=== PATIENT | female | born 1960 | race Caucasian/White ===

== ENCOUNTER 2021-03-07 14:58 | Outpatient (REF) | payer BC, SELFPAY ==
--- NOTE | ~2021-03-07 | US_ITS ---
EXAMINATION: US VENOUS ULTRASOUND WITH DOPPLER LOWER EXTREMITY, LEFT CLINICAL INFORMATION: Pain COMPARISON: None TECHNIQUE: Ultrasound of the deep veins is performed from the hip to the calf with compression sonography and color and pulse Doppler assessment. Spectral analysis with color-flow imaging is performed. FINDINGS: There is normal venous compression and respiratory variation and augmented flow. The visualized common femoral vein, superficial femoral vein, profunda femoral vein, popliteal vein, and the trifurcation region shows no evidence of deep venous thrombosis. There is no significant popliteal fossa cyst. US/US venous duplex LE LT IMPRESSION: No DVT demonstrated in the left lower extremity.
== END 2021-03-07 14:59 | disposition home or self-care (01) ==
LOC: HO.US 14:58
PROVIDERS: PCP Internal Medicine; Visit Provider Internal Medicine
DX: M79.605 Pain in left leg (principal)
CPT/HCPCS: 93971

== ENCOUNTER 2021-03-17 10:19 | Outpatient (REF) | payer BC, SELFPAY ==
[2021-03-17 10:23] LABS: MANUAL DIFF FLAG NO
[2021-03-17 10:35] LABS: Basophils Percent Auto 0.4 % (0-2); Eosinophils Absolute Auto 0.1 X10*3/uL (0.0-0.4); Eosinophils Percent Auto 1.5 % (0-4); Hemoglobin 12.6 g/dl (12.0-16.0); Imm Gran Abs Auto 0.01 X10*3/uL (0.00-0.03); Imm Gran Pct Auto 0.2 % (0.0-0.4); Lymphocytes Absolute Auto 1.9 X10*3/uL (1.2-4.9); Lymphocytes Percent Auto 35.2 % (20-40); Mean Corpuscular HGB Conc 33.2 g/dl (31.0-35.0); Mean Corpuscular Hemoglobin 31.3 pg (27.0-33.0); Mean Corpuscular Volume 94.5 fL (80-98); Mean Platelet Volume 9.9 fL (9.4-12.3); Monocytes Absolute Auto 0.5 X10*3/uL (0.1-1.2); Monocytes Percent Auto 9.9 % (2-11); Neutrophils Absolute Auto 2.8 X10*3/uL (2.0-8.3); Neutrophils Percent Auto 52.8 % (45-73); Platelet Count 227 X10*3/uL (160-400); Red Blood Count 4.02 X10*6/uL (4.20-5.50); Red Cell Distribution Width 12.8 % (11.0-16.0); White Blood Count 5.3 X10*3/uL (4.8-10.8)
[2021-03-17 10:41] LABS: Estimated Average Glucose 111 mg/dL; Hemoglobin A1c % 5.5 %
[2021-03-17 10:52] LABS: Glucose Urine UA NEG (NEG); Leukocyte Esterase Urine NEG (NEG); Nitrite Urine NEG (NEG); PH 5.5 (5.0-8.0); Specific Gravity - Urine >= 1.030 (1.005-1.025); Urine Blood NEG (NEG); Urine Ketones NEG (NEG); Urine Protein NEG (NEG-TRACE)
[2021-03-17 10:57] LABS: Appearance Urine CLEAR; Color Urine YELLOW
[2021-03-17 11:03] LABS: Alanine Aminotransferase 22 U/L (0-31); Albumin Level 4.5 g/dL (3.5-5.0); Alkaline Phosphatase 72 U/L (39-117); Anion Gap 12 (12-20); Aspartate Amino Transferase 25 U/L (5-31); Bilirubin Total 0.5 mg/dL (0.0-1.0); Blood Urea Nitrogen 20 mg/dL (9-16); Calcium 9.3 mg/dL (8.4-10.2); Carbon Dioxide 27 mmol/L (22-29); Chloride 108 mmol/L (96-108); Cholesterol 193 mg/dL; Estimated Glomerular Filt Rate > 60; Glucose Fasting 102 mg/dL (60-99); HDL Cholesterol 64 mg/dL; LDL Cholesterol Calculated 118 mg/dl; Sodium 143 mmol/L (135-145); Total Protein 6.7 g/dL (6.5-8.0); Triglycerides 56 mg/dL
[2021-03-17 11:06] LABS: Creatinine Urine 108.53 mg/dL; Microalbum/Creatinine Ratio Ur 6.4 ug/mg cr
[2021-03-17 11:25] LABS: Vitamin D 25-OH Total 30.4 ng/mL (>30)
== END 2021-03-17 10:20 | disposition home or self-care (01) ==
LOC: HO.LNP 10:19
PROVIDERS: Visit Provider Internal Medicine
DX: Z00.00 Encounter for general adult medical examination without abnormal findings (principal); E78.6 Lipoprotein deficiency; R73.03 Prediabetes; I10 Essential (primary) hypertension; E55.9 Vitamin D deficiency, unspecified
CPT/HCPCS: 80053; 80061; 81003; 82043; 82306; 83036; 85025

== ENCOUNTER 2021-09-11 10:52 | Day surgery (SDC) | payer BC, SELFPAY ==
[2021-09-04 09:35] VITALS: BMI 32.0
--- NOTE | 2021-09-07 14:39 | MHC.SHP ---
Pre-Procedural Eval Section A Date of Service: 09/07/21 The patient is an INPATIENT: No Changes since office visit: No Cold of Flu in the past 2 weeks, No New Medical Problems, No Changes in Medication and No Patient answered all questions The History & Physical has been completed within 30 days and I have reviewed it.: No Section B Chief Complaint: bleph Allergies: Allergies Allergy/AdvReac Type Severity Reaction Status Date / Time No Known Allergies Allergy Verified 09/01/21 15:07 Plan Diagnosis/Plan: Unchanged I have reviewed the history and physical and performed a pertinent physical examination on my patient. No changes have occurred unless specified.
--- NOTE | 2021-09-08 13:55 | P.CONAN_ITS ---
Documented by User: Cinthia Julian NP 09/08/21 13:56 HPI - Anesthesia Eval Consult details Narrative: 60yo F for Bilateral Blepharoplasty PCP cleared [facility] Past Medical History Medical History Benign neoplasm of ear COVID-19 vaccine series completed Surgical History Surgical History H/O colonoscopy History of lumpectomy of right breast Hx of ovarian cystectomy Social History Social History Are you a primary customer care specialist to a significant other at home: No Do you presently have visiting nurse or other home services: No Patient Tobacco Use Status: Never used Tobacco Use of substances other than those prescribed or required for medical reasons: No Have you been hit, kicked, punched, or otherwise hurt by someone within the past year? If so, by whom?: No Are you DNR?: No Advance Directives Information Provided: Yes (informational brochure mailed) Advance Directives on File: No Recently lost weight without trying: No Eating poorly because of decreased appetite: No Nutrition Risks: No Nutritional Risk Poor oral hygiene: No Meds Allergies Allergy/AdvReac Type Severity Reaction Status Date / Time No Known Allergies Allergy Verified 09/11/21 13:33 Home Medications Medication Instructions Recorded Confirmed Last Taken Type multivitamin 1 tab PO DAILY 09/04/21 09/04/21 Unknown History tamoxifen 20 mg tablet 1 tab PO DAILY 09/04/21 09/04/21 Unknown History Exam Exam Date and Time: September 08, 2021 1355 Height,Weight and Vital Signs: Height 5 ft 2 in Weight 79.379 kg Assessment and Plan Assessment Anesthesia Assessment: Chart Reviewed Documented by User: Floridalma Reddy MD 09/11/21 14:05 [facility] Past Medical History Medical History Benign neoplasm of ear COVID-19 vaccine series completed Family History Family history of problems with anesthesia: No Surgical History Surgical History H/O colonoscopy History of lumpectomy of right breast Hx of ovarian cystectomy History of Problems with Anesthesia: No Social History Social History Are you a primary customer care specialist to a significant other at home: No Do you presently have visiting nurse or other home services: No Patient Tobacco Use Status: Never used Tobacco Use of substances other than those prescribed or required for medical reasons: No Have you been hit, kicked, punched, or otherwise hurt by someone within the past year? If so, by whom?: No Are you DNR?: No Advance Directives Information Provided: Yes (informational brochure mailed) Advance Directives on File: No Recently lost weight without trying: No Eating poorly because of decreased appetite: No Nutrition Risks: No Nutritional Risk Poor oral hygiene: No Meds Allergies Allergy/AdvReac Type Severity Reaction Status Date / Time No Known Allergies Allergy Verified 09/11/21 13:33 Home Medications Medication Instructions Recorded Confirmed Last Taken Type multivitamin 1 tab PO DAILY 09/04/21 09/04/21 Unknown History tamoxifen 20 mg tablet 1 tab PO DAILY 09/04/21 09/04/21 Unknown History Exam Height,Weight and Vital Signs: Height 5 ft 2 in Weight 79.379 kg Vital Signs Temp Pulse Resp BP Pulse Ox 09/11/21 13:33 97.5 F 83 16 175/92 H 98 Airway Mallampati Class: II TM Dist: >3cm Neck ROM: Full Heart: RRR Lungs: CTAB Assessment and Plan Assessment Anesthesia Assessment: Anesthesia Plan Discussed Final Anesthetic Review Family History of Problems with Anesthesia: No History of Problems with Anesthesia: No NPO: Yes ASA Class: II Final Preanesthetic Review: No Changes in Pt Med Stat, Meds/Allgs Chart Reviewed , Consent Obtained/Reviewed and Anes Risks/Benef Reviewed Patient Risk: Low Procedure Risk: Low Assessment/Block/Sedation in SS: Assess/Block/Sedation-SS Anesthetic Plan Anesthetic Plan: MAC: Disposition: Standard PACU
[2021-09-11 13:33] VITALS: BP 175/92; PULSE 83; RESP 16; TEMP 36.4; O2SAT 98
[2021-09-11] MEDS: Lactated Ringers 500 ML 50 ML IV (13:50)
--- NOTE | 2021-09-11 14:47 | HO.PNOPHT ---
Ophthalmology Procedure Procedure Date of Service: 09/11/21 Ophthalmology Viscoelastic: Not Applicable Ophthalmology Lenses: Not Applicable Procedure Notes: PREOPERATIVE DIAGNOSIS: Decreased visual field secondary to dermatochalasia POSTOPERATIVE DIAGNOSIS: Same PROCEDURE: Bilateral Blepharoplasty, upper eyelids SURGEON: Khoi Suh M.D. ANESTHESIA: Local with sedation ESTIMATED BLOOD LOSS: None COMPLICATIONS: None After obtaining informed consent, the patient was brought to the operating room and placed in supine position. After adequate sedation per Anesthesia, the eyes were prepped and draped in the usual sterile fashion. Attention was directed to the right eye where a double pinch test was completed to assure excess tissue was not removed from the upper lid. The margin was marked at the proposed incision sites. The left eye was done in a similar fashion. 2% Lidocaine with epinephrine was then instilled subcutaneously along the margin of the pre-marked skin incisions. #15 scalpel blade was then utilized to create the incisions. Using a combination of sharp and blunt dissection with Aline scissors, the epidermis was removed. Hemostasis was achieved with cautery. 6-0 plain suture was then utilized to close the incision site. Attention was directed to the left upper lid where subcutaneous 2% with Epinephrine Lidocaine was instilled along the pre-marked areas. A #15 scalpel blade was then utilized to create the incisions followed by sharp and blunt dissection with Aline scissors to remove the overlying epidermis. Hemostasis was achieved with cautery, followed by closure with 6-0 plain suture. The patient tolerated the procedure well. The patient will be followed up in the a.m. Topical antibiotic ointment was instilled over the incision sites and ice as tolerated for 48 hours.
[2021-09-11 16:00] VITALS: BP 162/72; PULSE 89; RESP 16; TEMP 37.1; O2SAT 100
[2021-09-11 16:15] VITALS: BP 158/77; PULSE 70; RESP 16; O2SAT 98
[2021-09-11] MEDS: oxyCODONE HCl Immed Release 5 MG TABLET PO (16:15)
[2021-09-11] MEDS: Acetaminophen 325 MG TABLET 650 MG PO (16:20)
[2021-09-11 16:30] VITALS: BP 150/75; PULSE 71; RESP 16; TEMP 36.6; O2SAT 99
== END 2021-09-11 16:51 | disposition home or self-care (01) ==
PROVIDERS: PCP Internal Medicine; Visit Provider Ophthalmology
PROC: (CPT 15823; principal; 2021-09-11 14:10)
DX: H02.831 Dermatochalasis of right upper eyelid (principal); H02.834 Dermatochalasis of left upper eyelid; R73.09 Other abnormal glucose; M85.80 Other specified disorders of bone density and structure, unspecified site
CPT/HCPCS: 15823; J2250; J3010

== ENCOUNTER 2021-11-27 04:03 | Emergency (ER) | payer BC, SELFPAY ==
--- NOTE | 2021-11-27 | ECG_ITS ---
Test Reason : ABDOMINAL/BACK PAIN Blood Pressure : / mmHG Vent. Rate : 089 BPM Atrial Rate : 089 BPM P-R Int : 138 ms QRS Dur : 130 ms QT Int : 408 ms P-R-T Axes : 027 -71 -10 degrees QTc Int : 496 ms Normal sinus rhythm Left axis deviation Right bundle branch block Inferior infarct , age undetermined Abnormal ECG No previous ECGs available Referred By: Generic ED Physician Electronically Signed By:Aurelio Stewart
--- NOTE | ~2021-11-27 | CT_ITS ---
EXAMINATION: CT ABDOMEN AND PELVIS WITHOUT CONTRAST CLINICAL INFORMATION: Severe left flank pain. Rule out kidney stone. COMPARISON: None TECHNIQUE: Multidetector volumetric imaging was performed from the superior aspect of the liver through the pubic symphysis. Sagittal and coronal reformatted images were obtained on the technologist's workstation. This CT examination was performed using dose optimization techniques as appropriate, variously including the following: *Automated exposure control *Adjustment of mA and/or kV according to patient size (this includes techniques or standardized protocols for targeted exams where dose is matched to indication/reason for exam; i.e. extremities or head) *Use of iterative reconstruction technique DLP: 753 mGy-cm FINDINGS: LUNG BASES: The visualized lung bases are unremarkable. LIVER, GALLBLADDER, AND BILIARY TREE: The liver is normal in size, shape, and attenuation. No focal hepatic lesion or biliary ductal dilatation is present. The gallbladder is unremarkable with no evidence of radiopaque gallstones, gallbladder wall thickening, or obvious pericholecystic inflammatory changes. PANCREAS: Unremarkable. SPLEEN: Unremarkable. ADRENAL GLANDS: Unremarkable. KIDNEYS AND URETERS: The kidneys are normal in size, shape, and attenuation. No hydronephrosis, hydroureter, or calculi seen. No perinephric stranding. BLADDER: Unremarkable. GASTROINTESTINAL TRACT: The stomach is unremarkable. Normal caliber small bowel. No obstruction. Normal appendix. Much of the left hemicolon is decompressed. Minimal colonic diverticulosis without diverticulitis. Adjacent to the sigmoid colon in the left lower quadrant there is a fat lobule with mild inflammation associated, suggestive of epiploic appendagitis. ABDOMINAL WALL: No significant hernia is appreciated. LYMPH NODES: Normal. VASCULAR: Unremarkable. PELVIC VISCERA: The uterus and adnexa are unremarkable. OSSEOUS STRUCTURES: Mild degenerative change of the spine. No acute or suspicious osseous abnormality. CT/CT abdomen pelvis wo con IMPRESSION: Frontal lobule adjacent to the sigmoid colon with mild associated inflammation, suggestive of epiploic appendagitis. No hydronephrosis or nephrolithiasis.
[2021-11-27 04:15] VITALS: BP 190/87; PULSE 87; RESP 16; TEMP 36.4; O2SAT 98; BMI 34.7
[2021-11-27] MEDS: Ketorolac Tromethamine 30 MG/ML VIAL 60 MG IM (04:47)
[2021-11-27 04:49] LABS: MANUAL DIFF FLAG NO
[2021-11-27 04:51] LABS: Basophils Percent Auto 0.4 % (0-2); Eosinophils Absolute Auto 0.2 X10*3/uL (0.0-0.4); Eosinophils Percent Auto 2.6 % (0-4); Hematocrit 40.4 % (37.0-47.0); Hemoglobin 13.6 g/dl (12.0-16.0); Imm Gran Abs Auto 0.02 X10*3/uL (0.00-0.03); Imm Gran Pct Auto 0.3 % (0.0-0.4); Lymphocytes Absolute Auto 1.8 X10*3/uL (1.2-4.9); Lymphocytes Percent Auto 25.1 % (20-40); Mean Corpuscular HGB Conc 33.7 g/dl (31.0-35.0); Mean Corpuscular Hemoglobin 31.3 pg (27.0-33.0); Mean Corpuscular Volume 92.9 fL (80.0-98.0); Mean Platelet Volume 8.9 fL (9.4-12.3); Monocytes Absolute Auto 0.6 X10*3/uL (0.1-1.2); Monocytes Percent Auto 8.9 % (2-11); Neutrophils Absolute Auto 4.4 x10*3/uL (2.0-8.3); Neutrophils Percent Auto 62.7 % (45-73); Platelet Count 275 X10*3/uL (160-400); Red Blood Count 4.35 X10*6/uL (4.20-5.50); Red Cell Distribution Width 12.3 % (11.0-16.0)
[2021-11-27 04:52] LABS: Appearance Urine CLEAR; Color Urine YELLOW; Glucose Urine UA NEG (NEG); Leukocyte Esterase Urine NEG (NEG); Nitrite Urine NEG (NEG); PH 5.5 (5.0-8.0); Specific Gravity - Urine >= 1.030 (1.005-1.025); UACC Culture Trigger NO; Urine Blood TRACE (NEG); Urine Ketones NEG (NEG); Urine Protein NEG (NEG-TRACE)
[2021-11-27 04:58] LABS: Bacteria Urine 3+ /LPF; Squamous Epithelial Cell Urine 2+ /LPF
[2021-11-27 05:06] LABS: COVID-19 Test Negative (Negative)
[2021-11-27 05:27] LABS: Alanine Aminotransferase 22 U/L (0-31); Albumin Level 4.3 g/dL (3.5-5.0); Alkaline Phosphatase 83 U/L (39-117); Anion Gap 14 (12-20); Aspartate Amino Transferase 20 U/L (5-31); Bilirubin Total 0.6 mg/dL (0.0-1.0); Blood Urea Nitrogen 19 mg/dL (9-16); Calcium 9.3 mg/dL (8.4-10.2); Carbon Dioxide 22 mmol/L (22-29); Chloride 109 mmol/L (96-108); Creatinine Clr Calc Pharmacy 73.4; Estimated Glomerular Filt Rate > 60; Glucose Random 124 mg/dL (60-115); Lipase 39 U/L (8-78); Potassium 4.1 mmol/L (3.3-5.1); Sodium 141 mmol/L (135-145)
--- NOTE | 2021-11-27 08:59 | ED_ITS ---
HPI - Back Pain/Injury General Chief Complaint: Back Pain/Injury Stated Complaint: back pain Time Seen by Provider: 11/27/21 04:43 Source: patient Mode of arrival: ambulatory Limitations: no limitations History of Present Illness HPI Narrative: 61-year-old female presents with 9 days of abdominal cramping and pain in her left lower back. Nine days ago, patient was on a car ride with her , when she came home, states she had an explosive bowel movement, and the abdominal pain started. Since then, whenever she eats, she has a bowel movement which is not diarrhea, and is not loose, but is ?fast? and comes with cramping. Patient is able to eat and drink. No fevers. Patient has not had abdominal surgeries. Related Data Home Medications Medication Instructions Recorded Confirmed multivitamin 1 tab PO DAILY 09/04/21 09/04/21 tamoxifen 20 mg tablet 1 tab PO DAILY 09/04/21 09/04/21 Previous Rx's Medication Instructions Recorded ibuprofen 600 mg tablet 600 mg PO Q8H 14 Days #42 tab 11/27/21 oxycodone 5 mg tablet 5 mg PO Q6H PRN #20 tab 11/27/21 Allergies Allergy/AdvReac Type Severity Reaction Status Date / Time No Known Allergies Allergy Verified 09/11/21 13:33 Review of Systems Constitutional: Constitutional: Denies body ache(s), Denies chills, Denies f atigue, Denies fever(s), Denies headache(s), Denies malaise and Denies weakness Eyes: Eyes: Denies blurry vision and Denies diplopia ENT: Denies dizziness, Denies otalgia, Denies headache(s), Denies post nasal drip and Denies sore throat Cardiovascular: Cardiovascular: Denies chest pain, Denies syncope, Denies lightheadedness, Denies Loss of Consciousness, Denies palpitations and Denies dyspnea Respiratory: Respiratory: Denies chest congestion, Denies cough and Denies dyspnea Gastrointestinal: Gastrointestinal: Reports abdominal pain, Denies hemato chezia, Denies constipation, Denies diarrhea, Reports loose stools and Denies vomiting Genitourinary: Genitourinary: Denies abnormal vaginal bleeding, Denies hematuria, Denies dysuria, Denies pelvic pain, Reports flank pain and Denies vaginal discharge Musculoskeletal: Musculoskeletal: Reports back pain Integumentary/Breasts: Skin/Breast: Denies erythema, Denies skin pain and Denies wounds Neurologic: Denies confusion, Denies dizziness, Denies syncope, Denies headache(s) and Denies weakness Psychiatric: Psychiatric: Denies anxiety, Denies confusion and Denies depression Endocrine: Endocrine: Denies fatigue and Denies palpitations PMFSH Past Medical History Medical History Benign neoplasm of ear COVID-19 vaccine series completed Surgical History H/O colonoscopy History of lumpectomy of right breast Hx of ovarian cystectomy Social History Social History Are you a primary rn wound care to a significant other at home: No Do you presently have visiting nurse or other home services: No Patient Tobacco Use Status: Never used Tobacco Advance Directives: No Advance Directives Information Provided: No Patient : No Physical Exam Vital Signs: Vital Signs: Last Vital Signs Temp 97.6 F 11/27/21 04:15 Pulse 87 11/27/21 04:15 Resp 16 11/27/21 04:15 BP 190/87 H 11/27/21 04:15 Pulse Ox 98 11/27/21 04:15 BMI result Body Mass Index 34.7 Const: General: No confusion Nutritional Appearance: well nourished Orientation/consciousness: No confusion Limitations: no limitations HENMT: Head: Yes normal to inspection, Yes normocephalic and Yes atraumatic Ears: hearing grossly normal bilaterally, external ears normal, TM's normal bilaterally and EAC's normal General nose exam: Normal external nose present Face and sinus: Yes normal facial exam and Yes sinuses nontender Mouth: N ormal oral and palatal mucosa present Throat: Yes posterior oropharynx normal Eyes: Conjunctivae: conjunctivae normal Pupils: Equal, round and reactive pupils present EOM: EOMs intact bilaterally Neck: Neck: Yes full ROM, Yes no lymphadenopathy and Yes supple Resp: Effort & Inspection: normal respiratory effort and able to speak in complete sentences Auscultation: clear to auscultation bilaterally, no crackles, no rales, no rhonchi and no wheezes Cardio: Rate: regular rate Rhythm: regular rhythm Heart sounds: S1 norm al heart sound present and S2 normal heart sound present GI: Inspection: Yes normal to inspection Palpation (GI): Soft to palpation, Tenderness to palpation present (GI) in the LLQ, Guarding due to palpation present (GI) in the LLQ and not rigid Percussion: Yes normal to percussion Auscultation: normal bowel sounds Skin: General skin exam: no rashes or lesions noted Neuro: General: No confusion Cranial nerves: Yes Equal, round and reactive pupils present Extrem: General: Yes normal to inspection and Yes full ROM Psych: Appearance: grossly normal Affect: normal affect Attitude: cooperative Thought process: Normal thought process present Course Course Course Narrative: 7-year-old female with 9 days of worsening left-sided back pain and left lower quadrant abdominal pain. No fevers. Exam, patient is tender and guarding left lower quadrant Reevaluation(s) Reevaluation #1: Labs and urine are unremarkable, acute patient is COVID negative. CT/CT abdomen pelvis wo con IMPRESSION: Frontal lobule adjacent to the sigmoid colon with mild associated inflammation, suggestive of epiploic appendagitis. No hydronephrosis or nephrolithiasis. Gave patient information on epiploic appendagitis, prescribed oxycodone short course, ibuprofen, referred to surgery. Counseled patient that she should return to be seen if she has fevers, worsening pain, nausea vomiting, inability to eat. Counseled patient that sometimes to resolve this, surgery is needed, but a conservative trial of 2 or more weeks of pain medication and anti- inflammatories is indicated. Patient verbalized agreement understanding of the plan. MDM - Back Pain/Injury Lab Data Result diagrams: 11/27/21 04:37 11/27/21 04:37 Labs: Lab Results 11/27/21 11/27/21 11/27/21 Range/Units 04:37 04:37 04:37 WBC 7.0 (4.8-10.8) X10*3/uL RBC 4.35 (4.20-5.50) X10*6/uL Hgb 13.6 (12.0-16.0) g/dl Hct 40.4 (37.0-47.0) % MCV 92.9 (80.0-98.0) fL MCH 31.3 (27.0-33.0) pg MCHC 33.7 (31.0-35.0) g/dl RDW 12.3 (11.0-16.0) % Plt Count 275 (160-400) X10*3/uL MPV 8.9 L (9.4-12.3) fL Immature Gran % (Auto) 0.3 (0.0-0.4) % Neut % (Auto) 62.7 (45-73) % Lymph % (Auto) 25.1 (20-40) % [place] % (Auto) 8.9 (2-11) % Eos % (Auto) 2.6 (0-4) % Baso % (Auto) 0.4 (0-2) % Lymph # (Auto) 1.8 (1.2-4.9) X10*3/uL [place] # (Auto) 0.6 (0.1-1.2) X10*3/uL Eos # (Auto) 0.2 (0.0-0.4) X10*3/uL Baso # (Auto) 0.0 (0.0-0.2) X10*3/uL Abs Immat Gran (auto) 0.02 (0.00-0.03) X10*3/uL Absolute Neuts (auto) 4.4 (2.0-8.3) x10*3/uL Absolute Nucleated RBC 0.000 (0.0-0.012) X10*3/uL Nucleated RBC % (auto) 0.0 (0.0-0.2) /100WBC Sodium 141 (135-145) mmol/L Potassium 4.1 (3.3-5.1) mmol/L Chloride 109 H (96-108) mmol/L Carbon Dioxide 22 (22-29) mmol/L Anion Gap 14 (12-20) BUN 19 H (9-16) mg/dL Creatinine 0.83 (0.5-1.4) mg/dL Estim Creat Clear Calc 73.4 Estimated GFR > 60 Random Glucose 124 H (60-115) mg/dL Calcium 9.3 (8.4-10.2) mg/dL Total Bilirubin 0.6 (0.0-1.0) mg/dL AST 20 (5-31) U/L ALT 22 (0-31) U/L Alkaline Phosphatase 83 (39-117) U/L Total Protein 7.0 (6.5-8.0) g/dL Albumin 4.3 (3.5-5.0) g/dL Lipase 39 (8-78) U/L Urine Color Urine Appearance Urine pH (5.0-8.0) Ur Specific [place] (1.005-1.025) Urine Protein (NEG-TRACE) MG/DL Urine Glucose (UA) (NEG) MG/DL Urine Ketones (NEG) MG/DL Urine Blood (NEG) Urine Nitrite (NEG) Ur Leukocyte Esterase (NEG) Urine RBC (0) /HPF Urine WBC (0-4) /HPF Ur Squamous Epith Cells /LPF Urine Bacteria /LPF COVID-19 (BATOOL) Negative (Negative) COVID-19 Clin Com See Note 11/27/21 Range/Units 04:37 WBC (4.8-10.8) X10*3/uL RBC (4.20-5.50) X10*6/uL Hgb (12.0-16.0) g/dl Hct (37.0-47.0) % MCV (80.0-98.0) fL MCH (27.0-33.0) pg MCHC (31.0-35.0) g/dl RDW (11.0-16.0) % Plt Count (160-400) X10*3/uL MPV (9.4-12.3) fL Immature Gran % (Auto) (0.0-0.4) % Neut % (Auto) (45-73) % Lymph % (Auto) (20-40) % [place] % (Auto) (2-11) % Eos % (Auto) (0-4) % Baso % (Auto) (0-2) % Lymph # (Auto) (1.2-4.9) X10*3/uL [place] # (Auto) (0.1-1.2) X10*3/uL Eos # (Auto) (0.0-0.4) X10*3/uL Baso # (Auto) (0.0-0.2) X10*3/uL Abs Immat Gran (auto) (0.00-0.03) X10*3/uL Absolute Neuts (auto) (2.0-8.3) x10*3/uL Absolute Nucleated RBC (0.0-0.012) X10*3/uL Nucleated RBC % (auto) (0.0-0.2) /100WBC Sodium (135-145) mmol/L Potassium (3.3-5.1) mmol/L Chloride (96-108) mmol/L Carbon Dioxide (22-29) mmol/L Anion Gap (12-20) BUN (9-16) mg/dL Creatinine (0.5-1.4) mg/dL Estim Creat Clear Calc Estimated GFR Random Glucose (60-115) mg/dL Calcium (8.4-10.2) mg/dL Total Bilirubin (0.0-1.0) mg/dL AST (5-31) U/L ALT (0-31) U/L Alkaline Phosphatase (39-117) U/L Total Protein (6.5-8.0) g/dL Albumin (3.5-5.0) g/dL Lipase (8-78) U/L Urine Color YELLOW Urine Appearance CLEAR Urine pH 5.5 (5.0-8.0) Ur Specific [place] >= 1.030 H (1.005-1.025) Urine Protein NEG (NEG-TRACE) MG/DL Urine Glucose (UA) NEG (NEG) MG/DL Urine Ketones NEG (NEG) MG/DL Urine Blood TRACE (NEG) Urine Nitrite NEG (NEG) Ur Leukocyte Esterase NEG (NEG) Urine RBC 1-4 (0) /HPF Urine WBC 1-4 (0-4) /HPF Ur Squamous Epith Cells 2+ /LPF Urine Bacteria 3+ /LPF COVID-19 (BATOOL) (Negative) COVID-19 Clin Com Discharge Plan Discharge Clinical Impression: Epiploic appendagitis Patient Disposition: Home, Self-Care Instructions: Abdominal Pain (ED) Additional Instructions: PLease call general surgery at [phone] if your PAIN.is not better after 1 week of ibuprofen and percoset. Please return to the emergency room if you have worsening pain, fever, nausea, vomiting, or if you cannot eat. Prescriptions: New oxycodone 5 mg tablet 5 mg PO Q6H PRN (Reason: pain) Qty: 20 RF: 0 ibuprofen 600 mg tablet 600 mg PO Q8H 14 Days Qty: 42 RF: 0 No Action multivitamin Tablet 1 tab PO DAILY RF: 0 tamoxifen 20 mg tablet 1 tab PO DAILY RF: 0 Referrals: Nikolai Harrington MD [Physician] - 2 days Interventions: ED Discharge Assessment Last Done: 11/27/21 09:30 Discharge Date/Time: 11/27/21 09:31
--- NOTE | 2021-11-27 09:29 | PC.NURSE ---
PT UPDATED ON PLAN OF CARE BY PROVIDER GILDA. PT AWAKE, ALERT AND ORIENTED X 3. SKIN WARM AND DRY. RESP UNLABORED. DENIES N/V. NO ACUTE PAIN AT THIS TIME. DC INSTRUCTIONS REVIEWED WITH PATIENT BY BOTH PROVIDER AND RN. PT AGREEABLE TO DC HOME PLAN.
== END 2021-11-27 09:31 | disposition home or self-care (01) ==
PROVIDERS: Emergency Provider Emergency Medicine; PCP Internal Medicine
DX: K63.89 Other specified diseases of intestine (principal); Z20.822 Contact with and (suspected) exposure to COVID-19; R10.32 Left lower quadrant pain
CPT/HCPCS: 74176; 80053; 81001; 83690; 85025; 87635; 93005; 96372; 99284; J1885

== ENCOUNTER 2022-01-22 09:00 | Day surgery (SDC) | payer BC, SELFPAY ==
[2022-01-16 12:15] VITALS: BMI 33.1
--- NOTE | 2022-01-19 08:25 | P.CONAN_ITS ---
Documented by User: Cinthia Julian NP 01/19/22 08:25 HPI - Anesthesia Eval Consult details Narrative: 61yo F for Colonoscopy [facility] Past Medical History Medical History (Updated 01/16/22 @ 12:12 by Delicia Dyer, LOCO) Benign neoplasm of ear COVID-19 vaccine series completed IBS (irritable bowel syndrome) Family History Family history of problems with anesthesia: No Surgical History Surgical History (Updated 01/16/22 @ 12:12 by Delicia Dyer RN) H/O colonoscopy History of blepharoplasty History of lumpectomy of right breast Hx of ovarian cystectomy History of Problems with Anesthesia: No Social History Social History Are you a primary direct support professional caregiver to a significant other at home: No Do you presently have visiting nurse or other home services: No Patient Tobacco Use Status: Never used Tobacco Use of substances other than those prescribed or required for medical reasons: No Have you been hit, kicked, punched, or otherwise hurt by someone within the past year? If so, by whom?: No Are you DNR?: No Advance Directives: No Advance Directives Information Provided: No Advance Directives on File: No Recently lost weight without trying: No Eating poorly because of decreased appetite: No Meds Allergies Allergy/AdvReac Type Severity Reaction Status Date / Time No Known Allergies Allergy Verified 01/16/22 12:14 Home Medications Medication Instructions Recorded Confirmed Last Taken Type multivitamin 1 tab PO DAILY 09/04/21 01/16/22 Unknown History tamoxifen 20 mg tablet 1 tab PO DAILY 09/04/21 01/16/22 Unknown History ibuprofen 600 mg tablet 600 mg PO Q8H PRN 01/16/22 01/16/22 Unknown History Exam Exam Date and Time: January 19, 2022 0825 Height,Weight and Vital Signs: Height 5 ft 3 in Weight 84.822 kg Assessment and Plan Assessment Anesthesia Assessment: Chart Reviewed Final Anesthetic Review Family History of Problems with Anesthesia: No History of Problems with Anesthesia: No Documented by User: Nell Pierre MD 01/22/22 10:39 PMFSH Past Medical History Medical History (Updated 01/16/22 @ 12:12 by Delicia Dyer, RN) Benign neoplasm of ear COVID-19 vaccine series completed IBS (irritable bowel syndrome) Surgical History Surgical History (Updated 01/16/22 @ 12:12 by Delicia Dyer, RN) H/O colonoscopy History of blepharoplasty History of lumpectomy of right breast Hx of ovarian cystectomy Social History Social History Are you a primary direct support professional caregiver to a significant other at home: No Do you presently have visiting nurse or other home services: No Patient Tobacco Use Status: Never used Tobacco Use of substances other than those prescribed or required for medical reasons: No Have you been hit, kicked, punched, or otherwise hurt by someone within the past year? If so, by whom?: No Are you DNR?: No Advance Directives: No Advance Directives Information Provided: No Advance Directives on File: No Recently lost weight without trying: No Eating poorly because of decreased appetite: No Meds Allergies Allergy/AdvReac Type Severity Reaction Status Date / Time No Known Allergies Allergy Verified 01/16/22 12:14 Home Medications Medication Instructions Recorded Confirmed Last Taken Type multivitamin 1 tab PO DAILY 09/04/21 01/16/22 Unknown History tamoxifen 20 mg tablet 1 tab PO DAILY 09/04/21 01/16/22 Unknown History ibuprofen 600 mg tablet 600 mg PO Q8H PRN 01/16/22 01/16/22 Unknown History Exam Airway Mallampati Class: II TM Dist: >3cm Neck ROM: Full Heart: rrr Lungs: cta Assessment and Plan Assessment Anesthesia Assessment: Anesthesia Plan Discussed and Chart Reviewed Final Anesthetic Review NPO: Yes ASA Class: II Final Preanesthetic Review: No Changes in Pt Med Stat, Meds/Allgs Chart Reviewed and Consent Obtained/Reviewed Patient Risk: Intermediate Procedure Risk: Intermediate Anesthetic Plan Anesthetic Plan: MAC: Disposition: Standard PACU
[2022-01-22 09:51] VITALS: BP 169/85; PULSE 75; RESP 16; TEMP 36.6; O2SAT 99
[2022-01-22] MEDS: Lactated Ringers 1,000 ML 100 ML IVCONT (10:22)
[2022-01-22 11:31] VITALS: BP 97/79; PULSE 79; RESP 16; TEMP 35.8; O2SAT 98
--- NOTE | 2022-01-22 11:36 | PM.OP ---
Brief Operative Note Date of Service: 01/22/22 Pre-op diagnosis: Screening Post-op diagnosis: other (Diverticulosis) Procedure: Colonoscopy to the cecum and TI Surgeon: Socrates Alicia Anesthesia: MAC Was an Structural Steel Fitter used for this Procedure?: No Estimated blood loss (mL): 0 Pathology: none sent Condition: stable Disposition: PACU
[2022-01-22 11:53] VITALS: BP 144/69; PULSE 76; RESP 18; TEMP 36.8; O2SAT 96
--- NOTE | 2022-01-22 12:25 | OP_ITS ---
SURGEON: Socrates Alicia MD INDICATIONS: The patient presents for evaluation of colorectal cancer screening and family history of colon cancer. Full consent was obtained from her for this, including risks of bleeding and perforation. PREOPERATIVE DIAGNOSIS: Colorectal cancer screening and family history of colon cancer. POSTOPERATIVE DIAGNOSIS: PROCEDURE PERFORMED: Colonoscopy to the cecum and terminal ileum. ESTIMATED BLOOD LOSS: COMPLICATIONS: ANESTHESIA: Medication use, monitored anesthesia care. ASSISTANTS: SPECIMENS: POSTOPERATIVE DIAGNOSES: Colorectal cancer screening and family history of colon cancer, mild sigmoid diverticulosis, and internal hemorrhoids. DESCRIPTION OF PROCEDURE: The patient was placed in the left lateral decubitus position. The digital rectal exam revealed some small external hemorrhoidal tissue. The Olympus video pediatric colonoscope was entered into the rectum and advanced easily to the cecum. Once in the cecum, I did identify a normal-appearing cecal pouch with appendiceal orifice and a normal-appearing ileocecal valve. The terminal ileum was cannulated and appeared normal. The scope was withdrawn back in the colon. The entire cecum and ileocecal valve appeared normal. The scope was slowly withdrawn assessing all mucosal surfaces carefully. Preparation was excellent. I did not visualize any sign of polyps, colitis, nor angiodysplasia. There was a mild amount of sigmoid diverticulosis. In the rectum, scope was retroflexed visualizing some small internal hemorrhoids, but no other pathology. The rectal mucosa appeared normal. The scope was straightened and withdrawn from the patient. She tolerated the procedure well and was returned to the recovery area in stable condition. IMPRESSION: 1. Mild sigmoid diverticulosis. 2. Small internal and external hemorrhoids. PLAN: Given her family history, I would recommend a followup colonoscopy in 5 years for further screening. She will otherwise see me on a p.r.n. basis. MD MARTHA De La Cruz/JOSE / [phone]
== END 2022-01-22 12:39 | disposition home or self-care (01) ==
PROVIDERS: PCP Internal Medicine; Visit Provider Internal Medicine
PROC: 0DJD8ZZ Inspection of Lower Intestinal Tract, Via Natural or Artificial Opening Endoscopic (ICD-10-PCS; CPT 45378; principal; 2022-01-22 10:10)
DX: Z12.11 Encounter for screening for malignant neoplasm of colon (principal); Z80.0 Family history of malignant neoplasm of digestive organs; K57.30 Diverticulosis of large intestine without perforation or abscess without bleeding; K64.8 Other hemorrhoids; K64.4 Residual hemorrhoidal skin tags; K63.89 Other specified diseases of intestine; K58.9 Irritable bowel syndrome, unspecified; Z79.810 Long term (current) use of selective estrogen receptor modulators (SERMs)
CPT/HCPCS: 45378

== ENCOUNTER 2022-03-27 10:57 | Outpatient (REF) | payer BC, SELFPAY ==
[2022-03-27 11:00] LABS: MANUAL DIFF FLAG NO
[2022-03-27 11:24] LABS: Basophils Percent Auto 0.6 % (0-2); Eosinophils Absolute Auto 0.1 X10*3/uL (0.0-0.4); Eosinophils Percent Auto 2.4 % (0-4); Hematocrit 40.9 % (37.0-47.0); Hemoglobin 13.4 g/dl (12.0-16.0); Imm Gran Abs Auto 0.01 X10*3/uL (0.00-0.03); Imm Gran Pct Auto 0.2 % (0.0-0.4); Lymphocytes Absolute Auto 1.6 X10*3/uL (1.2-4.9); Lymphocytes Percent Auto 32.3 % (20-40); Mean Corpuscular HGB Conc 32.8 g/dl (31.0-35.0); Mean Corpuscular Hemoglobin 30.4 pg (27.0-33.0); Mean Corpuscular Volume 92.7 fL (80.0-98.0); Mean Platelet Volume 9.5 fL (9.4-12.3); Monocytes Absolute Auto 0.5 X10*3/uL (0.1-1.2); Monocytes Percent Auto 9.7 % (2-11); Neutrophils Absolute Auto 2.8 x10*3/uL (2.0-8.3); Neutrophils Percent Auto 54.8 % (45-73); Platelet Count 250 X10*3/uL (160-400); Red Blood Count 4.41 X10*6/uL (4.20-5.50); Red Cell Distribution Width 12.8 % (11.0-16.0)
[2022-03-27 11:29] LABS: Estimated Average Glucose 114 mg/dL; Hemoglobin A1c % 5.6 %
[2022-03-27 11:35] LABS: Alanine Aminotransferase 23 U/L (0-31); Albumin Level 4.2 g/dL (3.5-5.0); Alkaline Phosphatase 65 U/L (39-117); Anion Gap 11 (12-20); Aspartate Amino Transferase 23 U/L (5-31); Bilirubin Total 1.1 mg/dL (0.0-1.0); Blood Urea Nitrogen 19 mg/dL (9-16); Calcium 9.6 mg/dL (8.4-10.2); Carbon Dioxide 25 mmol/L (22-29); Chloride 109 mmol/L (96-108); Cholesterol 205 mg/dL; Estimated Glomerular Filt Rate > 60; Glucose Fasting 113 mg/dL (60-99); HDL Cholesterol 59 mg/dL; LDL Cholesterol Calculated 124 mg/dl; Potassium 4.3 mmol/L (3.3-5.1); Sodium 141 mmol/L (135-145); Total Protein 6.8 g/dL (6.5-8.0); Triglycerides 110 mg/dL
[2022-03-27 11:47] LABS: Appearance Urine CLEAR; Color Urine YELLOW; Glucose Urine UA NEG (NEG); Leukocyte Esterase Urine NEG (NEG); Nitrite Urine NEG (NEG); Urine Blood NEG (NEG); Urine Ketones NEG (NEG); Urine Protein NEG (NEG-TRACE)
[2022-03-27 12:00] LABS: Creatinine Urine 70.44 mg/dL; Microalbumin Urine < 5.0 mg/L
[2022-03-27 12:01] LABS: Mucus Urine 1+ /LPF; RBC Urine 0 /HPF (0); Squamous Epithelial Cell Urine 1+ /LPF; WBC Urine 0 /HPF (0-4)
== END 2022-03-27 10:58 | disposition home or self-care (01) ==
LOC: HO.LNP 10:57
PROVIDERS: PCP Internal Medicine; Visit Provider Internal Medicine
DX: Z00.00 Encounter for general adult medical examination without abnormal findings (principal); R73.03 Prediabetes; I10 Essential (primary) hypertension; E55.9 Vitamin D deficiency, unspecified; E78.00 Pure hypercholesterolemia, unspecified
CPT/HCPCS: 80053; 80061; 81001; 82043; 82306; 83036; 85025

== ENCOUNTER 2023-04-04 11:04 | Outpatient (REF) | payer BC, SELFPAY ==
[2023-04-04 11:10] LABS: MANUAL DIFF FLAG NO
[2023-04-04 11:51] LABS: Basophils Percent Auto 0.8 % (0-2); Eosinophils Absolute Auto 0.1 X10*3/uL (0.0-0.4); Eosinophils Percent Auto 1.9 % (0-4); Hematocrit 41.5 % (37.0-47.0); Hemoglobin 13.5 g/dl (12.0-16.0); Lymphocytes Absolute Auto 2.3 X10*3/uL (1.2-4.9); Lymphocytes Percent Auto 44.1 % (20-40); Mean Corpuscular HGB Conc 32.5 g/dl (31.0-35.0); Mean Corpuscular Hemoglobin 30.9 pg (27.0-33.0); Mean Platelet Volume 9.9 fL (9.4-12.3); Monocytes Absolute Auto 0.6 X10*3/uL (0.1-1.2); Monocytes Percent Auto 11.9 % (2-11); Neutrophils Absolute Auto 2.2 x10*3/uL (2.0-8.3); Neutrophils Percent Auto 41.3 % (45-73); Platelet Count 248 X10*3/uL (160-400); Red Blood Count 4.37 X10*6/uL (4.20-5.50); Red Cell Distribution Width 12.9 % (11.0-16.0); White Blood Count 5.2 X10*3/uL (4.8-10.8)
[2023-04-04 11:54] LABS: Appearance Urine Clear; Color Urine Yellow; Glucose Urine UA Negative (Negative); Leukocyte Esterase Urine Negative (Negative); Nitrite Urine Negative (Negative); Urine Blood Negative (Negative); Urine Ketones Negative (Negative); Urine Protein Negative (Neg-Trace)
[2023-04-04 11:59] LABS: Bacteria Urine None Seen (None Seen); Hyaline Casts Urine 0-2 /LPF (0-2); RBC Urine 0-2 /HPF (0-2); Squamous Epithelial Cell Urine 0-2 /HPF (0-2); WBC Urine 0-5 /HPF (0-5)
[2023-04-04 12:53] LABS: Alanine Aminotransferase 25 U/L (0-31); Albumin Level 4.2 g/dL (3.5-5.0); Alkaline Phosphatase 80 U/L (39-117); Anion Gap 13 (12-20); Aspartate Amino Transferase 24 U/L (5-31); Bilirubin Total 1.2 mg/dL (0.0-1.0); Blood Urea Nitrogen 17 mg/dL (9-16); Calcium 9.4 mg/dL (8.4-10.2); Carbon Dioxide 26 mmol/L (22-29); Chloride 109 mmol/L (96-108); Cholesterol 209 mg/dL; Creatinine Urine 92.09 mg/dL; Estimated Glomerular Filt Rate > 60; Glucose Fasting 110 mg/dL (60-99); HDL Cholesterol 53 mg/dL; LDL Cholesterol Calculated 130 mg/dl; Microalbumin Urine < 5.0 mg/L; Potassium 4.5 mmol/L (3.3-5.1); Sodium 143 mmol/L (135-145); Total Protein 6.6 g/dL (6.5-8.0); Triglycerides 130 mg/dL
[2023-04-04 13:10] LABS: Vitamin D 25-OH Total 51.2 ng/mL (>30)
[2023-04-04 13:14] LABS: Estimated Average Glucose 108 mg/dL; Hemoglobin A1c % 5.4 %
== END 2023-04-04 11:05 | disposition home or self-care (01) ==
LOC: HO.LNP 11:04
PROVIDERS: Visit Provider Internal Medicine
DX: Z00.00 Encounter for general adult medical examination without abnormal findings (principal); E55.9 Vitamin D deficiency, unspecified; R73.03 Prediabetes; I10 Essential (primary) hypertension
CPT/HCPCS: 80053; 80061; 81001; 82043; 82306; 83036; 85025

== ENCOUNTER 2023-04-25 10:17 | Outpatient (REF) | payer BC, SELFPAY ==
--- NOTE | ~2023-04-25 | MM_ITS ---
EXAMINATION: BONE DENSITOMETRY CLINICAL INDICATION: Lymphocytosis. COMPARISON: Previous BD dated 06/29/2020 and baseline BD dated 04/10/2018. TECHNIQUE: Using a [employer] DXA System (software version: 13.1) manufactured by [employer], dual-energy x-ray absorptiometry was performed of the lumbar spine and left hip. The images are of good technical quality. Summary results are attached. FINDINGS: AP SPINE L1-L4: Current: BMD 1.104 g/cm2, Z-score -0.1, T-score -0.6, normal, 1.1% decrease from previous, 3.9% decrease from baseline (<5% change is not significant). Prior: BMD 1.116 g/cm2. Baseline: BMD 1.149 g/cm2. LEFT FEMUR, NECK: Current: BMD 0.793 g/cm2, Z-score -0.9, T-score -1.8, osteopenia. Prior: BMD 0.823 g/cm2. Baseline: BMD 0.796 g/cm2. LEFT FEMUR, TOTAL: Current: BMD 1.025 g/cm2, Z-score 0.6, T-score 0.1, normal, 4.7% increase from previous, 1.8% increase from baseline (<5% change is not significant). Prior: BMD 0.979 g/cm2. Baseline: BMD 1.007 g/cm2. IDENTIFIED RISK FACTORS: Menopause. HISTORY OF FRACTURE: None listed. MEDICATIONS: Calcium supplements or multivitamin, vitamin D, ERT/SERMS. MM/XR DEXA axial skeleton IMPRESSION: 1. DIAGNOSIS: Osteopenia based on the lowest T-score value of -1.8 in the femoral neck applying World Health Organization criteria. 2. 10-YEAR FRACTURE RISK PREDICTION, FRAX: Not performed in this patient on estrogen or bone building treatments. 3. Treatment Recommendations: NOF guidelines recommend consideration for treatment in postmenopausal women and men age 50 and older presenting with the following: -A hip or vertebral (clinical or morphometric) fracture. -T-score less than or equal to -2.5 at the femoral neck or spine after appropriate evaluation to exclude secondary causes. -Low bone mass at the hip or spine and a 10-year fracture probability by FRAX of greater than or equal to 3% for hip fracture or greater than or equal to 20% for major osteoporotic fracture based on the [place] adapted WHO algorithm. 4. Other Recommendations: All treatment decisions require clinical judgment and consideration of individual patient factors, including patient preferences, comorbidities, previous drug use, risk factors not captured in the FRAX model (e.g. frailty, falls, vitamin D deficiency, increased bone turnover, interval significant decline in bone density) and possible under or overestimation of fracture risk by FRAX. Additional medical evaluation for secondary cause of low bone mineral density may be appropriate. FUTURE SCAN RECOMMENDATION: People with diagnosed cases of osteoporosis or at high risk for fracture should have regular bone mineral density tests. For patients eligible for Medicare, routine testing is allowed once every 2 years. The testing frequency can be increased to one year for patients who have rapidly progressing disease, those who are receiving or discontinuing medical therapy to restore bone mass, or have additional risk factors.
== END 2023-04-25 10:18 | disposition home or self-care (01) ==
LOC: HO.MAMMO 10:17
PROVIDERS: PCP Internal Medicine; Visit Provider Internal Medicine
DX: Z13.820 Encounter for screening for osteoporosis (principal); Z78.0 Asymptomatic menopausal state; D72.820 Lymphocytosis (symptomatic)
CPT/HCPCS: 77080

== ENCOUNTER 2023-05-23 11:34 | Outpatient (REF) | payer BC, SELFPAY ==
[2023-05-23 11:37] LABS: MANUAL DIFF FLAG NO
[2023-05-23 12:59] LABS: Basophils Percent Auto 0.8 % (0-2); Eosinophils Absolute Auto 0.2 X10*3/uL (0.0-0.4); Eosinophils Percent Auto 4.6 % (0-4); Hematocrit 41.5 % (37.0-47.0); Hemoglobin 13.3 g/dl (12.0-16.0); Imm Gran Abs Auto 0.01 X10*3/uL (0.00-0.03); Imm Gran Pct Auto 0.2 % (0.0-0.4); Lymphocytes Percent Auto 37.8 % (20-40); Mean Corpuscular Hemoglobin 30.9 pg (27.0-33.0); Mean Corpuscular Volume 96.3 fL (80.0-98.0); Monocytes Absolute Auto 0.5 X10*3/uL (0.1-1.2); Monocytes Percent Auto 9.8 % (2-11); Neutrophils Absolute Auto 2.4 x10*3/uL (2.0-8.3); Neutrophils Percent Auto 46.8 % (45-73); Platelet Count 241 X10*3/uL (160-400); Red Blood Count 4.31 X10*6/uL (4.20-5.50); Red Cell Distribution Width 13.2 % (11.0-16.0); White Blood Count 5.2 X10*3/uL (4.8-10.8)
== END 2023-05-23 11:35 | disposition home or self-care (01) ==
LOC: HO.LNP 11:34
PROVIDERS: Visit Provider Internal Medicine
DX: D72.820 Lymphocytosis (symptomatic) (principal)
CPT/HCPCS: 85025

== ENCOUNTER 2024-04-27 10:59 | Outpatient (REF) | payer BC, SELFPAY ==
[2024-04-27 11:03] LABS: MANUAL DIFF FLAG NO
[2024-04-27 11:14] LABS: Basophils Percent Auto 0.6 % (0-2); Eosinophils Absolute Auto 0.1 X10*3/uL (0.0-0.4); Eosinophils Percent Auto 2.5 % (0-4); Hematocrit 40.7 % (37.0-47.0); Hemoglobin 13.6 g/dl (12.0-16.0); Imm Gran Abs Auto 0.01 X10*3/uL (0.00-0.03); Imm Gran Pct Auto 0.2 % (0.0-0.4); Lymphocytes Percent Auto 37.2 % (20-40); Mean Corpuscular HGB Conc 33.4 g/dl (31.0-35.0); Mean Corpuscular Volume 92.7 fL (80.0-98.0); Mean Platelet Volume 9.6 fL (9.4-12.3); Monocytes Absolute Auto 0.5 X10*3/uL (0.1-1.2); Monocytes Percent Auto 8.6 % (2-11); Neutrophils Absolute Auto 2.7 x10*3/uL (2.0-8.3); Neutrophils Percent Auto 50.9 % (45-73); Platelet Count 243 X10*3/uL (160-400); Red Blood Count 4.39 X10*6/uL (4.20-5.50); Red Cell Distribution Width 13.3 % (11.0-16.0); White Blood Count 5.2 X10*3/uL (4.8-10.8)
[2024-04-27 11:15] LABS: Appearance Urine Cloudy; Color Urine Yellow; Glucose Urine UA Negative (Negative); Leukocyte Esterase Urine Negative (Negative); Nitrite Urine Negative (Negative); Specific Gravity - Urine 1.025 (1.005-1.025); Urine Blood Negative (Negative); Urine Ketones Negative (Negative); Urine Protein Negative (Neg-Trace)
[2024-04-27 11:24] LABS: Bacteria Urine Trace (None Seen); Hyaline Casts Urine 0-2 /LPF (0-2); RBC Urine 0-2 /HPF (0-2); WBC Urine 0-5 /HPF (0-5)
[2024-04-27 11:34] LABS: Alanine Aminotransferase 27 U/L (0-31); Albumin Level 4.3 g/dL (3.5-5.0); Alkaline Phosphatase 124 U/L (39-117); Anion Gap 12 (12-20); Aspartate Amino Transferase 27 U/L (5-31); Bilirubin Total 0.7 mg/dL (0.0-1.0); Blood Urea Nitrogen 20 mg/dL (9-16); Calcium 9.2 mg/dL (8.4-10.2); Carbon Dioxide 26 mmol/L (22-29); Chloride 109 mmol/L (96-108); Cholesterol 233 mg/dL (<200); Estimated Glomerular Filt Rate > 60; Glucose Fasting 107 mg/dL (60-99); HDL Cholesterol 56 mg/dL (>40); LDL Cholesterol Calculated 156 mg/dL (<100); Potassium 4.1 mmol/L (3.3-5.1); Sodium 143 mmol/L (135-145); Total Protein 6.9 g/dL (6.5-8.0); Triglycerides 107 mg/dL (<150)
[2024-04-27 11:35] LABS: Estimated Average Glucose 117 mg/dL; Hemoglobin A1c % 5.7 % (<6.0)
[2024-04-27 11:48] LABS: Vitamin D 25-OH Total 71.4 ng/mL (>30)
[2024-04-27 12:11] LABS: Creatinine Urine 141.93 mg/dL; Microalbum/Creatinine Ratio Ur 8.4 ug/mg cr (<30)
== END 2024-04-27 11:00 | disposition home or self-care (01) ==
LOC: HO.LNP 10:59
PROVIDERS: Visit Provider Internal Medicine
DX: Z00.00 Encounter for general adult medical examination without abnormal findings (principal); R73.09 Other abnormal glucose; I10 Essential (primary) hypertension; E55.9 Vitamin D deficiency, unspecified; E78.00 Pure hypercholesterolemia, unspecified; D72.820 Lymphocytosis (symptomatic)
CPT/HCPCS: 80053; 80061; 81001; 82043; 82306; 82570; 83036; 85025

== ENCOUNTER 2024-10-23 11:22 | Outpatient (REF) | payer BC, SELFPAY ==
[2024-10-23 11:55] LABS: Cholesterol 256 mg/dL (<200); Glucose Fasting 109 mg/dL (60-99); HDL Cholesterol 59 mg/dL (>40); LDL Cholesterol Calculated 171 mg/dL (<100); Triglycerides 134 mg/dL (<150)
[2024-10-23 12:05] LABS: Estimated Average Glucose 117 mg/dL; Hemoglobin A1C 134.4019 umol/L; Hemoglobin A1c % 5.7 % (<6.0); Total Hemoglobin (HGBA1C) 3478.3164 umol/L
== END 2024-10-23 11:23 | disposition home or self-care (01) ==
LOC: HO.LNP 11:22
PROVIDERS: Visit Provider Internal Medicine
DX: E78.00 Pure hypercholesterolemia, unspecified (principal); Z13.1 Encounter for screening for diabetes mellitus
CPT/HCPCS: 80061; 82947; 83036

== ENCOUNTER 2025-02-05 09:42 | Outpatient (REF) | payer BC, SELFPAY ==
[2025-02-05 10:12] LABS: Estimated Average Glucose 120 mg/dL; Hemoglobin A1C 148.7015 umol/L; Hemoglobin A1c % 5.8 % (<6.0); Total Hemoglobin (HGBA1C) 3686.2702 umol/L
[2025-02-05 10:19] LABS: Alanine Aminotransferase 50 U/L (0-31); Albumin Level 4.2 g/dL (3.5-5.0); Alkaline Phosphatase 138 U/L (39-117); Aspartate Amino Transferase 35 U/L (5-31); Bilirubin Direct 0.3 mg/dL (0.0-0.5); Bilirubin Total 1.4 mg/dL (0.0-1.0); Cholesterol 229 mg/dL (<200); Glucose Fasting 107 mg/dL (60-99); HDL Cholesterol 62 mg/dL (>40); LDL Cholesterol Calculated 148 mg/dL (<100); Total Protein 6.7 g/dL (6.5-8.0); Triglycerides 97 mg/dL (<150)
== END 2025-02-05 09:43 | disposition home or self-care (01) ==
LOC: HO.LNP 09:42
PROVIDERS: Visit Provider Internal Medicine
DX: E78.00 Pure hypercholesterolemia, unspecified (principal); R73.03 Prediabetes
CPT/HCPCS: 80061; 80076; 82947; 83036

== ENCOUNTER 2025-04-13 12:27 | Emergency (ER) | payer BC, SELFPAY ==
--- NOTE | ~2025-04-13 | XR_ITS ---
EXAMINATION: XR FOOT, LEFT CLINICAL INFORMATION: trauma COMPARISON: None available. TECHNIQUE: AP, lateral, and oblique views of the left foot. FINDINGS: There is an accessory ossification medial to the PIP joint of third digit with associated widening of the medial joint space. Faint calcific density is present dorsal to the DIP joint of the second digit. Mild to moderate enthesophytes are evident at the plantar fascial and Achilles attachment onto calcaneus. There is also small bony spur midway between the 2 enthesophytes. XR/XR foot LT min 3V IMPRESSION: Tiny calcific density dorsal to the second PIP joint. This probably chronic, correlate for signs symptoms of acute tenderness. Variant ossification is noted at the head of the third proximal phalanx. Incidental note is made of calcaneal spurs. Electronically signed by: Davie Emanuel MD 04/13/2025 01:48 PM EDT
[2025-04-13 12:30] VITALS: BMI 30.9
--- NOTE | 2025-04-13 12:36 | ED_ITS ---
HPI - General Adult General Chief complaint: Wound/Laceration Stated complaint: Toe lac Time Seen by Provider: 04/13/25 12:40 Source: patient Mode of arrival: wheelchair Limitations: no limitations History of Present Illness ED Provider: Neha Verduzco PA-C HPI narrative: Patient is a 64 year old assigned female at with a history of IBS presenting to the emergency department today with a left 3rd toe laceration. Patient states that she was using an axe to attempt to remove a tree stump when she accidentally cut her left 3rd toe. Patient states that she was wearing a flip flop. Patient states that she doesn't know when her last tetanus shot was. Patient denies any dizziness, lightheadedness, abdominal pain, nausea, vomiting, fever, chills, blurry vision, double vision, loss of vision, chest pain, difficulty breathing, shortness of breath, back pain, night sweats, pain with urination, increased urinary frequency, increased urinary urgency, blood in her urine or stool, syncope or a near syncopal episode, bowel incontinence, bladder incontinence, or any other complaints at this time. Relieving factors: none Exacerbating factors: none Associated symptoms: denies other symptoms Treatments prior to arrival: none Related Data Home Medications ?Medication ?Instructions ?Recorded ?Confirmed multivitamin 1 tab PO DAILY 09/04/21 01/16/22 tamoxifen 20 mg tablet 1 tab PO DAILY 09/04/21 01/16/22 ibuprofen 600 mg tablet 600 mg PO Q8H PRN Pain 01/16/22 01/16/22 Previous Rx's ?Medication ?Instructions ?Recorded amoxicillin 875 mg tablet 875 mg PO BID 7 days #14 tabs 04/13/25 Allergies Allergy/AdvReac Type Severity Reaction Status Date / Time No Known Allergies Allergy Verified 04/13/25 12:36 Review of Systems 2 Constitutional: Constitutional: Reports no additional constitutional complaints, Denies chills, Denies fever(s) and Denies night sweats Eyes: Eyes: Reports no additional eye complaints, Denies blurry vision, Denies change in vision, Denies diplopia, Denies eye discharge, Denies loss of vision and Denies eye pain ENT: Denies dizziness Cardiovascular: Cardiovascular: Reports no additional cardiovascular complaints, Denies chest pain, Denies lightheadedness, Denies Loss of Consciousness and Denies dyspnea Respiratory: Respiratory: Reports no additional respiratory complaints and Denies dyspnea Gastrointestinal: Gastrointestinal: Reports no additional gastrointestinal complaints, Denies abdominal pain, Denies melena, Denies hematochezia, Denies change in bowel habits and Denies change in stool character Genitourinary: Genitourinary: Denies hematuria, Denies urinary frequency, Denies dysuria, Denies urinary incontinence, Denies urinary hesitancy and Denies urinary urgency Musculoskeletal: Musculoskeletal: Reports no additional musculoskeletal complaints, Denies numbness and Denies tingling Comments: left 3rd toe laceration Neurologic: Denies dizziness, Denies loss of vision, Denies numbness and Denies tingling Psychiatric: Psychiatric: Reports no additional psychiatric complaints Endocrine: Endocrine: Reports no additional endocrine complaints Hematologic/Lymphatic: Hematologic/Lymphatic: Reports no additional hematologic/lymphatic complaints Allergic/Immunologic: Allergic/Immunologic: Reports no additional allergic/immunologic complaints PMFSH Past Medical History Attestation statement: The following information was validated with the patient. Source: old records reviewed and nursing notes reviewed Medical History IBS (irritable bowel syndrome) COVID-19 vaccine series completed Benign neoplasm of ear Surgical History History of blepharoplasty Hx of ovarian cystectomy History of lumpectomy of right breast H/O colonoscopy Social History Social History Are you a primary transitional care liaison to a significant other at home: No Do you presently have visiting nurse or other home services: No Patient Tobacco Use Status: Never used Tobacco Smoked in Last 30 Days: No Use of substances other than those prescribed or required for medical reasons: No Advance Directives: Yes Advance Directives Information Provided: Yes Advance Directives on File: No Patient : No Physical Exam ED Vital Signs: Vital Signs - 24 hr 04/13/25 12:38 04/13/25 14:53 Temperature 98.4 F 97.4 F Pulse Rate 150 H 90 Respiratory Rate 18 16 Blood Pressure 184/100 H 152/89 H Pulse Oximetry 99 98 Oxygen Delivery Method Room Air Room Air BMI result Body Mass Index 30.9 Const General: cooperative, no acute distress, alert and awake Nutritional Appearance: well nourished Orientation/consciousness: patient oriented x3 HENMT Head: Yes normal to inspection and Yes atraumatic Ears: hearing grossly normal bilaterally and external ears normal General nose exam: Normal external nose present, no nasal discharge noted and no epistaxis Face and sinus: Yes normal facial exam, No abrasion and No laceration Mouth: Normal oral and palatal mucosa present, no drooling and no muffled voice Eyes General: appearance normal, both eyes and all related structures Periorbital: periorbital findings normal Eyelids: Yes eyelids normal Conjunctivae: conjunctivae normal Pupils: Equal, round and reactive pupils present EOM: EOMs intact bilaterally Neck Neck: Yes normal visual inspection, Yes full ROM and Yes no lymphadenopathy Resp Effort & Inspection: normal respiratory effort and able to speak in complete sentences Neuro General: patient oriented x3, moves all extremities and CN's II-XI intact bilaterally Cranial nerves: Yes Equal, round and reactive pupils present Cognition (Neuro): normal cognition Extrem Other: General: Yes full ROM and Yes capillary refill normal Psych Appearance: grossly normal Mental Status: mental status grossly normal Affect: normal affect Attitude: cooperative Thought process: Normal thought process present Thought content: Normal thought content present Insight: Good insight present (Psych) Course Course Course Narrative: RME, this is a rapid medical exam performed by Ck Riley please refer to primary provider for complete H&P- 64-year-old female presents for evaluation of left foot trauma. She reports that she was chopping wood with an Axe. She was wearing sandals and accidentally struck her foot around the left 3rd toe. Plan for x-ray. She was brought straight back to a room Medications Administered Discontinued Medications Generic Name Dose Route Start Last Admin Trade Name Yumi PRN Reason Stop Dose Admin Diphtheria/Tetanus/Acell Pertussis 0.5 ml 04/13/25 12:46 04/13/25 13:23 Diphth,Pertus(Acell),Tet Adult 0.5 Ml Syringe IM 04/13/25 12:47 0.5 ml .ONCE ONE Administration Cefazolin Sodium 1.5 gm/ 100 mls @ 200 mls/hr 04/13/25 12:44 04/13/25 14:49 Sodium Chloride IV 04/13/25 13:13 Infused ONCE ONE Infusion Lidocaine HCl 20 ml 04/13/25 12:44 04/13/25 13:32 Lidocaine Hcl 1 % Mpf 5 Ml Vial SUBCUT 04/13/25 12:45 20 ml ONCE ONE Administration Lorazepam 0.5 mg 04/13/25 12:44 04/13/25 13:23 Lorazepam 0.5 Mg Tablet PO 04/13/25 12:45 0.5 mg ONCE ONE Administration Procedures Laceration Laceration 1: Site: other (3rd toe) Side (If applicable): left Size (cm): 4 Description: irregular Depth: involves muscle layer Local Anesthetic: lidocaine 1% Amount of anesthesia used (mL): 10 Pre-repair: wound explored Skin layer closed with: other (prolene) Size (cm): 5-0 Number of sutures: 7 Technique: simple, interrupted Subcutaneous layer closed with: other (polysorb) Size: 5-0 Number of sutures: 1 Technique: simple, interrupted Orthopedic Splinting/Casting Injury #1: Side: left Lower Extremity Injury Location: toe (3rd) Lower Extremity Immobilizer: post-op shoe (with individual toe splint) Other Orthopedic Equipment: crutches Medical Decision Making Medical Decision Making MDM Narrative: Patient is a 64 year old assigned female at with a history of IBS presenting to the emergency department today with a left 3rd toe laceration. Patient's physical exam was as noted in the physical exam portion of this note. Patient's blood work was unremarkable. Patient's left foot x-ray was read as a variant ossification at the head of the third proximal phalanx however, this is directly where the patient struck herself with an axe and is more consistent with an acute fracture. I spoke with the orthopedic team who recommended clean out, repair, and outpatient follow up with ABX. Patient was immediately given IV Ancef. I explained my physical exam findings as well as all test results to the patient. I answered all questions asked by the patient. Patient's laceration was repaired, per procedure note, without incident. Patient's PMS was intact prior to and after repair. Patient's left 3rd toe was splinted and placed in a post-op shoe, per procedure note. Patient's PMS was intact prior to and after shoe and splint placement. I stressed the importance of the patient taking her medication as directed (either prescribed or as the over the counter packaging recommends). I stressed the importance of the patient following up with her primary care provider and the orthopedic team. I stressed the importance of the patient returning to the emergency department immediately if her symptoms were to worsen or if she were to develop any dizziness, shortness of breath, difficulty breathing, chest pain, blurry vision, loss of vision, nausea, vomiting, abdominal pain, fever, chills, back pain, or any other complaints. Patient verbalized agreement and understanding with this treatment plan and discharge. Differential Diagnosis Differential Diagnoses: The differential diagnosis associated with the presentation includes Left 3rd toe laceration Left 3rd toe fracture Admission/Observation Consideration of admission/observation: Escalation of care including admission/observation considered Patient would have been admitted to the hospital had her work up had any findings where hospital admission was appropriate and her clinical presentation warranted hospital admission. Consult Healthcare Provider Management of the patient was discussed with: Boat Builder (I spoke with the orthopedic team as noted in the MDM Rationale portion of this note. ) Lab Data [facility] Lab Attestation statement: I reviewed the patient's lab results. My interpretation of these results are in the MDM Rationale portion of this note. 04/13/25 13:04 04/13/25 13:04 Labs: Lab Results 04/13/25 Range/Units 13:04 WBC 6.6 (4.8-10.8) X10*3/uL RBC 4.47 (4.20-5.50) X10*6/uL Hgb 13.8 (12.0-16.0) g/dl Hct 40.8 (37.0-47.0) % MCV 91.3 (80.0-98.0) fL MCH 30.9 (27.0-33.0) pg MCHC 33.8 (31.0-35.0) g/dl RDW 13.2 (11.0-16.0) % Plt Count 261 (160-400) X10*3/uL MPV 9.1 L (9.4-12.3) fL Immature Gran % (Auto) 0.3 (0.0-0.4) % Neut % (Auto) 54.0 (45-73) % Lymph % (Auto) 34.8 (20-40) % [place] % (Auto) 9.1 (2-11) % Eos % (Auto) 1.2 (0-4) % Baso % (Auto) 0.6 (0-2) % Lymph # (Auto) 2.3 (1.2-4.9) X10*3/uL [place] # (Auto) 0.6 (0.1-1.2) X10*3/uL Eos # (Auto) 0.1 (0.0-0.4) X10*3/uL Baso # (Auto) 0.0 (0.0-0.2) X10*3/uL Abs Immat Gran (auto) 0.02 (0.00-0.03) X10*3/uL Absolute Neuts (auto) 3.6 (2.0-8.3) x10*3/uL Absolute Nucleated RBC 0.000 (0.0-0.012) X10*3/uL Nucleated RBC % (auto) 0.0 (0.0-0.2) /100WBC Sodium 142 (135-145) mmol/L Potassium 3.7 (3.3-5.1) mmol/L Chloride 108 (96-108) mmol/L Carbon Dioxide 23 (22-29) mmol/L Anion Gap 15 (12-20) BUN 20 H (9-16) mg/dL Creatinine 0.91 (0.5-1.4) mg/dL Estim Creat Clear Calc 65.4 Estimated GFR > 60 Random Glucose 167 H (60-115) mg/dL Calcium 9.9 D (8.4-10.2) mg/dL Total Bilirubin 1.9 H (0.0-1.0) mg/dL AST 39 H (5-31) U/L ALT 41 H (0-31) U/L Alkaline Phosphatase 140 H (39-117) U/L Total Protein 7.3 (6.5-8.0) g/dL Albumin 4.6 (3.5-5.0) g/dL Lipase 23 (8-78) U/L Independent Interpretation I performed an independent interpretation of an: Plain X-Ray Interpretation: My interpretation is there is an acute fracture of the left 3rd proximal phalanx where the radiologist reads there is an ossification. Below is the interpretation of the radiologist. L EXAMINATION: XR FOOT, LEFT CLINICAL INFORMATION: trauma COMPARISON: None available. TECHNIQUE: AP, lateral, and oblique views of the left foot. FINDINGS: There is an accessory ossification medial to the PIP joint of third digit with associated widening of the medial joint space. Faint calcific density is present dorsal to the DIP joint of the second digit. Mild to moderate enthesophytes are evident at the plantar fascial and Achilles attachment onto calcaneus. There is also small bony spur midway between the 2 enthesophytes. XR/XR foot LT min 3V IMPRESSION: Tiny calcific density dorsal to the second PIP joint. This probably chronic, correlate for signs symptoms of acute tenderness. Variant ossification is noted at the head of the third proximal phalanx. Incidental note is made of calcaneal spurs. Electronically signed by: Davie Emanuel MD 04/13/2025 01:48 PM EDT RP Dictated By: Davie Emanuel MD Signed By: Electronically signed by Davie Emanuel MD 04/13/25 [id number] Radiology Impression Discussion of test interpretation with radiology: I have reviewed the radiologist's reading. Prescription Management I considered prescription management with: Antibiotic (Patient prescribed a prophylactic antibiotic given the mechanism of injury and per orthopedic teams instructions.) Critical Care Time Critical Care Time Critical Care Time: Yes Total Critical Care Time: 33 Attestation: I spent 33 minutes of Critical Care Time with this patient. This does not include time spent on separately reported billable procedures. Discharge Plan Discharge Clinical Impression: Laceration, Fracture of toe Patient Disposition: Home, Self-Care Instructions: Care For Your Stitches (DC), Laceration (DC), Toe Fracture (ED), Post Surgical Shoe (ED) Additional Instructions: Do NOT get your splint wet. Do NOT remove your splint. If you have any change in sensation, movement, or color of your left 3rd toe - you may loosen the outer wrap. If you find yourself loosening the wrap to the point of seeing the white splint material underneath - STOP and proceed to your closest Emergency Department, immediately. It is crucial that you follow up with the orthopedic team for re-evaluation of you sutures (1 internal, 7 external) and your toe fracture. Whenever you are ambulating - you MUST wear your post-op shoe. You may remove the shoe for sleep and when you are not ambulating. Please use crutches when feasible to avoid additional pressure on your injury. Follow up with your primary care provider. Return to the emergency department immediately if your symptoms worsen or if you develop any numbness, tingling, dizziness, shortness of breath, difficulty breathing, chest pain, blurry vision, loss of vision, nausea, vomiting, abdominal pain, fever, chills, back pain, or any other complaints. Please see the information below about our Patient Portal. If you are not yet enrolled in the [facility] Patient Portal, you will receive an enrollment email invitation following your visit to any [facility] setting. You may also self-enroll in the Patient Portal by visiting our website: [email or web address] The following information is required to access the Patient Portal: - Your [facility] Medical Record Number - Your personal home email address (must match what is in your electronic medical record, Registration staff can assist with this) - Name - Date of Capabilities of the Patient Portal: - Message some providers - View upcoming appointments - Access your health summary, medical history, and visit history - View current conditions and allergies - View procedure and lab results - View your medications, including guidelines, side effects, and precautions - Complete pre-appointment questionnaires requested by your provider - Ready summary reports of your office visits and procedures To access the Patient Portal Mobile Sumit, follow these directions: - Search [email or web address] in the Sumit Store or Atterocor Store - Download the Sumit - Search for [facility] - Enter your login/password Prescriptions: New amoxicillin 875 mg tablet 875 mg PO BID 7 Days Qty: 14 0RF No Action ibuprofen 600 mg tablet 600 mg PO Q8H PRN (Reason: Pain) multivitamin Tablet 1 tab PO DAILY tamoxifen 20 mg tablet 1 tab PO DAILY Referrals: [facility] Orthopedic Surgeons [Provider Group] (Call to establish and follow up with an orthopedic provider.) Colin Alfaro MD [Primary Care Provider] - Stand Alone Forms: Work/School Release Print Language: Sinhala
[2025-04-13 12:38] VITALS: BP 184/100; PULSE 150; RESP 18; TEMP 36.9; O2SAT 99
[2025-04-13 13:07] LABS: MANUAL DIFF FLAG NO
[2025-04-13 13:09] LABS: Basophils Percent Auto 0.6 % (0-2); Eosinophils Absolute Auto 0.1 X10*3/uL (0.0-0.4); Eosinophils Percent Auto 1.2 % (0-4); Hematocrit 40.8 % (37.0-47.0); Hemoglobin 13.8 g/dl (12.0-16.0); Imm Gran Abs Auto 0.02 X10*3/uL (0.00-0.03); Imm Gran Pct Auto 0.3 % (0.0-0.4); Lymphocytes Absolute Auto 2.3 X10*3/uL (1.2-4.9); Lymphocytes Percent Auto 34.8 % (20-40); Mean Corpuscular HGB Conc 33.8 g/dl (31.0-35.0); Mean Corpuscular Hemoglobin 30.9 pg (27.0-33.0); Mean Corpuscular Volume 91.3 fL (80.0-98.0); Mean Platelet Volume 9.1 fL (9.4-12.3); Monocytes Absolute Auto 0.6 X10*3/uL (0.1-1.2); Monocytes Percent Auto 9.1 % (2-11); Neutrophils Absolute Auto 3.6 x10*3/uL (2.0-8.3); Platelet Count 261 X10*3/uL (160-400); Red Blood Count 4.47 X10*6/uL (4.20-5.50); Red Cell Distribution Width 13.2 % (11.0-16.0); White Blood Count 6.6 X10*3/uL (4.8-10.8)
[2025-04-13] MEDS: ceFAZolin Sodium 1.5 GM in 0.9 % Sodium Chloride 100 ML IV (13:20)
[2025-04-13] MEDS: LORazepam 0.5 MG TABLET PO (13:23)
[2025-04-13] MEDS: Diphth,Pertus(ACell),Tet Adult 0.5 ML SYRINGE IM (13:23)
[2025-04-13 13:27] LABS: Alanine Aminotransferase 41 U/L (0-31); Albumin Level 4.6 g/dL (3.5-5.0); Alkaline Phosphatase 140 U/L (39-117); Anion Gap 15 (12-20); Aspartate Amino Transferase 39 U/L (5-31); Bilirubin Total 1.9 mg/dL (0.0-1.0); Blood Urea Nitrogen 20 mg/dL (9-16); Calcium 9.9 mg/dL (8.4-10.2); Carbon Dioxide 23 mmol/L (22-29); Chloride 108 mmol/L (96-108); Creatinine Clr Calc Pharmacy 65.4; Estimated Glomerular Filt Rate > 60; Glucose Random 167 mg/dL (60-115); Lipase 23 U/L (8-78); Potassium 3.7 mmol/L (3.3-5.1); Sodium 142 mmol/L (135-145); Total Protein 7.3 g/dL (6.5-8.0)
[2025-04-13] MEDS: Lidocaine HCl 1 % MPF 5 ML VIAL 20 ML SUBCUT (13:32)
--- NOTE | 2025-04-13 13:33 | PC.NURSE ---
Patient presents to ED c/o wound to left foot. Patient was chopping a stump at home in sandals and hit her foot between the second and third toe. Toe is still attached at this time, Patient able to spread toes and has feeling sensation on toes. Wound cleansed with iodine. IV 20G in LAC blood collected/sent. Patient given ativan for anxiety per provider, Administered tetanus shot per provider in left deltoid. Xray completed, results pending. Patient hypertensive but all other vitals stable. Plan of care on going
[2025-04-13 14:53] VITALS: BP 152/89; PULSE 90; RESP 16; TEMP 36.3; O2SAT 98
[2025-04-13 15:38] VITALS: BP 142/73; PULSE 98; RESP 16; TEMP 36.3; O2SAT 98
--- OUTSIDE RECORDS SUMMARY | 2025-04-13 16:35 | XMS_ITS | Continuity of Care Document ---
Author Organization [facility] Address [address] [place] [id number] Insurance Providers Payer Plan Claims Address Claims Phone Policy Number Group Number Relation Employer Guarantor Name Guarantor Guarantor Address Guarantor Phone [employer] [place] [employer] [facility] [address], [place] [address] tel:[phone] [id number] Self Dominique Scott 1960 [address] [place] [address] [employer] Local [id number] Self Dominique Scott 1960 [address] [place] [address] [employer] [place] PPO [id number] Self Dominique Scott [address] [place] [id number] Problems Unknown Problems Results Test Value / Unit Interpretation Reference Ran Comp. Metabolic Panel (14)[[id number]]?Collected: 08/13/2024 04:32 PM?Specimen Received: 08/13/2024 05:00 AM?Source: [facility] Glucose [673727] 93 mg/dL 70-99 mg/dL BUN [761402] 22 mg/dL 8-27 mg/dL Creatinine [863153] 0.93 mg/dL 0.57-1.0 0 mg/dL eGFR [553930] 69 mL/min/1.73 >59 mL/min/1 .73 BUN/Creatinine Ratio [822722] 24 12-28 Sodium [972953] 143 mmol/L 134-144 mmol /L Potassium [262863] 5.2 mmol/L 3.5-5.2 m mol/L Chloride [132942] 106 mmol/L 96-106 mmo l/L Carbon Dioxide, Total [600439] 24 mmol/L 20-29 mmol/L Calcium [507409] 9.6 mg/dL 8.7-10.3 mg /dL Protein, Total [238884] 6.6 g/dL 6.0- 8.5 g/dL Albumin [506032] 4.4 g/dL 3.9-4.9 g/d L Globulin, Total [464668] 2.2 g/dL 1.5 -4.5 g/dL Bilirubin, Total [369474] 1.2 mg/dL 0. 0-1.2 mg/dL Alkaline Phosphatase [103666] 131 IU/L H 44-121 IU/L AST (SGOT) [786443] 28 IU/L 0-40 IU/ L ALT (SGPT) [122620] 33 IU/L H 0-32 IU/ L Lipid Panel[[id number]]?Collected: 08/13/2024 04:32 PM?Specimen Received: 08/13/2024 05:00 AM?Source: [facility] Cholesterol, Total [389564] 265 mg/dL H 100-199 mg/dL Triglycerides [040263] 115 mg/dL 0-149 mg/dL HDL Cholesterol [792123] 62 mg/dL >39 mg/dL VLDL Cholesterol Gerardo [997706] 20 mg/dL 5-40 mg/dL LDL Chol Calc (NIH) [058196] 183 mg/dL H 0-99 mg/dL Hemoglobin A1c[665549]?Collected: 08/13/2024 04:32 PM?Specimen Received: 08/13/2024 05:00 AM?Source: [facility] Hemoglobin A1c [599952] 6.1 % H 4.8- 5.6 % . Prediabetes: 5.7 - 6.4 Karolina betes: >6.4 Glycemic control for adults with diabetes: 7.0 Allergies, adverse reactions, alerts No known allergies and adverse reactions Medications No administered medications reported Vital Signs No vital signs reported Social History No smoking Hx information available
== END 2025-04-13 15:59 | disposition home or self-care (01) ==
PROVIDERS: Physician Assistant; Emergency Provider Emergency Medicine Emergency Medical Services; PCP Internal Medicine
DX: S92.512A Displaced fracture of proximal phalanx of left lesser toe(s), initial encounter for closed fracture (principal); S91.115A Laceration without foreign body of left lesser toe(s) without damage to nail, initial encounter; W27.0XXA Contact with workbench tool, initial encounter; Y93.89 Activity, other specified; Y92.017 Garden or yard in single-family (private) house as the place of occurrence of the external cause; Y99.9 Unspecified external cause status; Z23 Encounter for immunization
CPT/HCPCS: 12042; 36415; 73630; 80053; 83690; 85025; 90471; 90715; 96365; 96366; 99284; J0690; J2003

== ENCOUNTER → 2025-04-13 12:35 | Outpatient (BNV) | payer BC, SELFPAY | PROVIDERS: PCP Internal Medicine; Visit Provider Radiology Diagnostic Radiology | DX: M61.572 Other ossification of muscle, left ankle and foot (principal); M77.32 Calcaneal spur, left foot | CPT/HCPCS: 73630 ==

== ENCOUNTER 2025-04-19 08:33 | Outpatient (AMB) | payer BC, SELFPAY ==
[2025-04-19 08:41] VITALS: BMI 30.9
--- NOTE | 2025-04-19 08:41 | MHC.OFFVIS ---
Vital Signs 04/19/25 08:41 Height 5 ft 4 in Weight 180 lb BMI 30.9 Intake Visit Reasons: ER f/u left 3rd toe lac/fx DOI 04/13/25 Intake Note: Dominique is a 64 year old female who presents for an ER follow up of her left third toe laceration/fracture, DOI 04/13/25. Patient presented to [facility] ER after her toe was cut with an axe while she was attempting to remove a tree stump. Sutures were applies and was placed in a toe splint, post op shoe and referred to orthopedics. Today patient reports no pain. She changed her gauze bandage. She has been out of work since her injury. Allergies No Known Allergies Allergy (Verified 04/19/25 08:49) Medication List - Last Reconciled 04/19/25 by CHRIS Correa-Catalina amoxicillin 875 mg PO BID 7 days atorvastatin 20 mg PO DAILY coenzyme Q10 (Co Q-10) mg PO ibuprofen 600 mg PO Q8H PRN multivitamin 1 tab PO DAILY HPI HPI ER f/u left 3rd toe lac/fx DOI 04/13/25: Details: 64-year-old female presents to the office today for a follow-up 3rd toe laceration and fracture. Date of injury on 04/13/2025. She states she was using an Axe to cut a tree stump when it hit her foot. She was seen in the emergency department where the wound was irrigated and sutured and she was referred to our office for ortho eval. The patient states she is unable to extend the digit. 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 She is able to perform flexion of the toes however extension of the 3rd digit is not functional. Neurovascularly intact Results Reviewed Results Reviewed: X-rays of the left foot obtained on April 13 are significant for a minimally displaced 3rd toe fracture Assessment & Plan Assessment & Plan (1) Laceration of toe involving extensor tendon: Code(s): S96.129A - Laceration of muscle and tendon of long extensor muscle of toe at ankle and foot level, unspecified foot, initial encounter Category: Medical Plan: Every other suture was removed on the wound. The incision will be kept clean and dry and covered with a nonstick dressing. She was given a short boot to weightbear as tolerated. Due to the extensor tendon injury I did advise she go to the [facility] injury clinic for further evaluation as they have a foot and ankle specialists and this may need surgical repair and it is a timely sensitive matter. The patient does express understanding and will call me if there is any questions or concerns. Coding Level of Care Code New Pt Level 3 (59290) Complex EM visit Add On G2211 Diagnoses Laceration of toe involving extensor tendon S96.129A
--- OUTSIDE RECORDS SUMMARY | 2025-04-19 08:42 | XMS_ITS ---
Author Organization Colin Alfaro MD Address [address] [place] [phone] Care Team Providers Care Personal Care Assistant Name Role Phone AngelinaColin Primary Care Provider REASON FOR VISIT med issue Medications Medication SIG (Take, Route, Fr equency, Duration) Notes Start Date End Date Status Coenzyme Q-10 60 MG as directed Orally d aily for 100 days 02/16/2025 Active Encounters Encounter Location Date Provider Diagnosis Colin Alfaro MD [address] [place] [phone] 02/18/2025 Colin Alfaro Hypercholesterolemia E78.00 Assessments Encounter Date Diagnosis (ICD Code) Assessment Notes Treatment Notes Treatment Clinical Notes Section Notes 02/18/2025 Hypercholesterolemia (ICD-10 - E78.00) Plan Of Treatment Medication Medication Name Sig Start Date Stop Date Notes Coenzyme Q-10 60 MG as directed Orally daily for 100 days 02/16/2025 Next Appt Details Provider Name:Colin Mireles jv, 04/30/2025 07:30:00 AM, [address] [place] [address], [address], [place], [place], [phone], Provider Name:Colin Mireles ier, 05/06/2025 11:00:00 AM, [address] [place] [address], [address], [place], [place], [phone], Progress Notes * Dominique GREEN CDOB:1960 (64 yo F)Acc No.[id number]:02/18/2025 Patient:?Chiara GREENhugh Arnold :1960???Age:64 Y???Sex:Female Address:[address] [place] [id number] * Refills? Refill Coenzyme Q-10 Capsule, 60 MG, Orally, 100, as directed, daily, 100 days, Refills=3 * true * Date:? Generated for Reid cortes/Maik/Libertadsmitting on:?04/19/2025 08:42 AM EDT
== END 2025-04-19 09:56 | disposition home or self-care (01) ==
LOC: HO.HOS 08:33
PROVIDERS: PCP Internal Medicine; Visit Provider Physician Assistant
DX: S96.122A Laceration of muscle and tendon of long extensor muscle of toe at ankle and foot level, left foot, initial encounter (principal)
CPT/HCPCS: 99203

== ENCOUNTER 2025-04-30 10:21 | Outpatient (REF) | payer BC, SELFPAY ==
--- OUTSIDE RECORDS SUMMARY | 2024-08-05 04:15 | XMS_ITS ---
Author Organization [facility] Address [address] [place] [address] Care Team Providers Care Air Bag Builder Name Role Phone Angelina RESENDIZ, Colin Primary Care Provider Felicita Ashraf [phone] Encounters Encounter Location Date Provider Diagnosis [address] [address] 08/05/2024 Felicita Moran Plan Of Treatment No Information Progress Notes * Dominique GREEN CDOB:1960 (64 yo F)Acc No.[id number]:08/05/2024 Progress Note Patient: Dominique AGUIAR Provider: Ct Moran DPM :1960 A ge:63 Y S ex:Female Date:08/05/2024 [facility] Pcp:Colin Alfaro MD Subjective: * Chief Complaints: [...] 0 08/05/2024 Generated for Printi ng/Faxing/eTransmitting on: 0 04/30/2025 10:37 AM EDT
[2025-04-30 10:24] LABS: MANUAL DIFF FLAG NO
[2025-04-30 10:33] LABS: Basophils Percent Auto 0.5 % (0-2); Eosinophils Absolute Auto 0.2 X10*3/uL (0.0-0.4); Eosinophils Percent Auto 2.4 % (0-4); Hematocrit 41.3 % (37.0-47.0); Hemoglobin 13.4 g/dl (12.0-16.0); Imm Gran Abs Auto 0.01 X10*3/uL (0.00-0.03); Imm Gran Pct Auto 0.2 % (0.0-0.4); Lymphocytes Absolute Auto 2.2 X10*3/uL (1.2-4.9); Lymphocytes Percent Auto 36.5 % (20-40); Mean Corpuscular HGB Conc 32.4 g/dl (31.0-35.0); Mean Corpuscular Hemoglobin 30.5 pg (27.0-33.0); Mean Corpuscular Volume 93.9 fL (80.0-98.0); Mean Platelet Volume 9.7 fL (9.4-12.3); Monocytes Absolute Auto 0.7 X10*3/uL (0.1-1.2); Monocytes Percent Auto 10.6 % (2-11); Neutrophils Absolute Auto 3.1 x10*3/uL (2.0-8.3); Neutrophils Percent Auto 49.8 % (45-73); Platelet Count 239 X10*3/uL (160-400); Red Cell Distribution Width 13.3 % (11.0-16.0); White Blood Count 6.1 X10*3/uL (4.8-10.8)
[2025-04-30 10:35] LABS: Appearance Urine Clear; Color Urine Yellow; Glucose Urine UA Negative (Negative); Leukocyte Esterase Urine Negative (Negative); Nitrite Urine Negative (Negative); PH 5.5 (5.0-9.0); Specific Gravity - Urine 1.025 (1.005-1.025); Urine Blood Negative (Negative); Urine Ketones Negative (Negative); Urine Protein Negative (Neg-Trace)
[2025-04-30 10:42] LABS: Bacteria Urine None Seen (None Seen); Hyaline Casts Urine 0-2 /LPF (0-2); RBC Urine 0-2 /HPF (0-2); Squamous Epithelial Cell Urine 0-2 /HPF (0-2); WBC Urine 0-5 /HPF (0-5)
[2025-04-30 10:52] LABS: Estimated Average Glucose 114 mg/dL; Hemoglobin A1C 134.0579 umol/L; Hemoglobin A1c % 5.6 % (<6.0)
[2025-04-30 11:08] LABS: Alanine Aminotransferase 38 U/L (0-31); Albumin Level 4.5 g/dL (3.5-5.0); Alkaline Phosphatase 128 U/L (39-117); Anion Gap 11 (12-20); Aspartate Amino Transferase 32 U/L (5-31); Blood Urea Nitrogen 17 mg/dL (9-16); Calcium 9.4 mg/dL (8.4-10.2); Carbon Dioxide 26 mmol/L (22-29); Chloride 110 mmol/L (96-108); Cholesterol 170 mg/dL (<200); Estimated Glomerular Filt Rate > 60; Glucose Fasting 108 mg/dL (60-99); HDL Cholesterol 50 mg/dL (>40); LDL Cholesterol Calculated 93 mg/dL (<100); Potassium 3.8 mmol/L (3.3-5.1); Sodium 143 mmol/L (135-145); Total Protein 6.8 g/dL (6.5-8.0); Triglycerides 137 mg/dL (<150); Vitamin D 25-OH Total 55.2 ng/mL (>30)
[2025-04-30 11:16] LABS: Microalbum/Creatinine Ratio Ur 5.7 ug/mg cr (<30)
== END 2025-04-30 10:22 | disposition home or self-care (01) ==
LOC: HO.LNP 10:21
PROVIDERS: Visit Provider Internal Medicine
DX: Z00.00 Encounter for general adult medical examination without abnormal findings (principal); R73.03 Prediabetes; I10 Essential (primary) hypertension; E55.9 Vitamin D deficiency, unspecified; E78.00 Pure hypercholesterolemia, unspecified; D72.820 Lymphocytosis (symptomatic)
CPT/HCPCS: 80053; 80061; 81001; 82043; 82306; 82570; 83036; 85025

== ENCOUNTER 2025-10-28 10:30 | Outpatient (REF) | payer BC, SELFPAY ==
--- OUTSIDE RECORDS SUMMARY | 2024-08-05 03:15 | XMS_ITS ---
Author Organization [facility] Address [address] [place] [address] Care Team Providers Care Surface Logging Systems Logger Name Role Phone Angelina RESENDIZ, Colin Primary Care Provider Felicita Ashraf [phone] Encounters Encounter Location Date Provider Diagnosis [address] [address] 08/05/2024 Felicita Moran Plan Of Treatment No Information Progress Notes * Dominique GREEN CDOB:1960 (65 yo F)Acc No.[id number]:08/05/2024 Progress Note Patient: Dominique AGUIAR Provider: Ct Moran DPM :1960 A ge:63 Y S ex:Female Date:08/05/2024 [id number] Pcp:Colin Alfaro MD Subjective: * Chief Complaints: * * Medical History: Objective: * Vitals: Assessment: Plan: * Treatment: * Images: * The named appointment provid er may or may not be the originator of this progress note, and it is not deemed complete until electronically signed by the appointment provider. Sign off status: Pending * Provider: Ct Moran DPM Date: 0 08/05/2024 Generated for Printi ng/Faxing/eTransmitting on: 1 12/29/2024 01:12 PM EST
--- OUTSIDE RECORDS SUMMARY | 2024-10-27 09:00 | XMS_ITS ---
Author Organization Colin Alfaro MD Address [address] [place] [phone] Care Team Providers Care Mincing Machine Operator Name Role Phone Colin Alfaro Primary Care Provider Allergies No Known Allergies Results Component Value Reference Range Notes Glucose, finger stick Reviewed date:10/27/2024 01:40:34 PM Interpretation: Performing Lab: Notes/Report: Value 124 REASON FOR VISIT 6 month prediabetes Medications Medication SIG (Take, Route, Frequency, Duration) Notes Start Date End Date Status Atorvastatin Calcium 20 MG 1 tablet Oral ly Once a day for 30 days 10/27/2024 Active Multivitamin Women - as directed Orally Active Problems Problem Type SNOMED Code ICD Code Onset Dates Problem Status W/U Status Risk Notes Problem [id number] Hypercholesterol emia (E78.00) Active confirmed Vital Signs Blood pressure systolic 156 mm Hg 10/27/20 24 Blood pressure diastolic 82 mm Hg 024 Height 63 in 10/27/2024 Weight 201 lbs 10/27/2024 BMI 35.60 kg/m2 10/27/2024 weight is up 6 pounds since 09-10-24 Encounters Encounter Location Date Provider Diagnosis Colin Alfaro MD [address] [place] [phone] 10/27/2024 Colin Alfaro Prediabetes R73.09 ; Hypercholesterolemia E78.00 ; Melanoma of skin C43.9 and Essential hypertension I10 Assessments Encounter Date Diagnosis (ICD Code) Assessment Notes Treatment Notes Treatment Clinical Notes Section Notes 10/27/2024 Prediabetes (ICD-10 - R73.09) stable, no need for medication at this time, will continue to monitor 10/27/2024 Hypercholesterolemia (ICD-10 - E78.00) patient verbalized understanding of medication and directions for use 10/27/2024 Melanoma of skin (ICD-10 - C43.9) seeing derm every 6 months 10/27/2024 Essential hypertensi on (ICD-10 - I10) stable, will continue to monitor Plan Of Treatment Medication Medication Name Sig Start Date Stop Date Notes Atorvastatin Calcium 20 MG 1 tablet Oral ly Once a day for 30 days 10/27/2024 Treatment Notes Assessment Notes Prediabetes stable, no need for medication at this time, will continue to monitor Hypercholesterolemia patient verbalized understanding of medication and directions for use Melanoma of skin seeing derm every 6 months Essential hypertension stable, will cont inue to monitor Next Appt Details Follow Up: 3 Months, Reason: Provider Name:Colin carias, 11/01/2025 11:00:00 AM, [address] [place] [address], [address], [phone], Provider Name:Colin carias, 05/09/2026 07:00:00 AM, [address] [place] [address], [address], [phone], Provider Name:Colin carias, 05/16/2026 10:30:00 AM, [address] [place] [address], [address], [phone], Progress Notes * Dominique GREEN CDOB:1960 (64 yo F)Acc No.[id number]:10/27/2024 Progress Notes Patient: Dominique Strong Provider: Kalin Alfaro MD :1960 A ge:64 Y S ex:Female Date:10/27/2024 Address:[address] [place], [place] [id number] Subjective: * Chief Complaints: * 6 month prediabetes * HPI: S ymptom(s): patient is a 64 yo female here for 6 month follow up visit. * ROS: G eneral/Constitutional: Change in appetite d enies. D enies C hills, d enies. D enies F atigue. D enies F ever, d enies. D enies H eadache.? O phthalmologic: Blurred vision d enies. D ischarge d enies. P ain d enies. E NT: Patient denies d ecreased sense of smell , any loss of taste , sore throat. D ecreased hearing d enies. D enies S ore throat, d enies. S wollen glands d enies. E ndocrine: Cold intolerance d enies. E xcessive thirst d enies. H eat intolerance d enies. W eight loss d enies. R espiratory: Denies C ough, d enies. D enies S hortness of breath at rest, d enies. D enies S hortness of breath with exertion, d enies. W heezing d enies. C ardiovascular: Chest pain at rest d enies. C hest pain with exertion?denies. I rregular heartbeat d enies. S hortness of breath d enies. ? G astrointestinal: Abdominal pain d enies. C hange in bowel habits d enies. D enies D iarrhea, d enies. D enies N ausea, d enies. R ectal bleeding d enies. V omiting d enies . G enitourinary: Blood in urine d enies. D ifficulty urinating d enies. F requent urination d enies. U rinary incontinence D enies. M usculoskeletal: Patient denies m uscle aches. P ainful joints d enies. W eakness d enies. P eripheral Vascular: Patient denies r ed and blue toes. S kin: Dry skin d enies. I tching d enies. D enies?Mole(s), changes in moles, new moles or any lesions of concern. D enies P hotosensitivity. R clemencia d enies. N eurologic: Dizziness d enies. F ainting d enies. H eadache?denies. * Medical History: * Surgical History: * Hospitalization/Major Diagno stic Procedure: * Medications: T akingMultivitamin Women - Tablet as directed Orally Medication List reviewed and reconciled with the patientTaking Multivitamin Women - Tablet as directed Orally Medication List reviewed and reconciled with the patient * Allergies: N .K.D.A.yes[Allergies Verified] Objective: * Vitals: H t: 63, Wt:201, BMI:35.60, BP:156/82, Repeat BP:130/88 weight is up 6 pounds since 09-10-24. * P ast Orders: L ab:Lipid Panel (Order Date - 10/23/2024) (Collection Date - 10/23/2024) Value Reference Range Triglycerides 134 <150 - mg/dL Cholesterol 256 H <200 - mg/dL LDL Cholesterol Calculated 171 H <100 - mg/dL HDL Cholesterol 59 >40 - mg/dL L ab:Glucose Fasting (Order Date - 10/23/2024) (Collection Date - 10/23/2024) Value Reference Range Glucose Fasting 109 H 60-99 - mg/dL L ab:Hemoglobin A1c (Order Date - 10/23/2024) (Collection Date - 10/23/2024) Value Reference Range Hemoglobin A1c % 5.7 <6.0 - % Estimated Average Glucose 117 - mg/dL * Examination: G eneral Examination: GENERAL APPEARANCE: w ell developed, well nourished, in no acute distress. HEAD: n ormocephalic, atraumatic. EYES: p upils equal, round, reactive to light and accommodation, sclera non-icteric. EARS: n ormal. ORAL CAVITY: m ucosa moist. THROAT: c lear. NECK/THYROID: n conchita supple, full range of motion, no cervical lymphadenopathy, no bruits. SKIN: w arm and dry, no suspicious lesions. HEART: r egular rate and rhythm, S1, S2 normal, no murmurs.? LUNGS: c lear to auscultation bilaterally. BREASTS: N o mass, no lump. ABDOMEN: s oft, nontender, nondistended, bowel sounds present, normal, no organomegaly , no masses palpable. RECTAL EXAM: d one by senior care specialist. FEMALE GENITOURINARY: d one by senior care specialist. EXTREMITIES: n o clubbing, cyanosis, or edema. NEUROLOGIC: n onfocal, motor strength normal upper and lower extremities, sensory exam intact. Assessment: * Assessment: 1. H ypercholesterolemia - E78.00 (Primary) 2 . P rediabetes - R73.09 3 . M elanoma of skin - C43.9 4 . E ssential hypertension - I10 Plan: * Treatment: 2. P rediabetes Start Atorvastatin Calcium Tablet, 20 MG, 1 tablet, Orally, Once a day, 30 days, 30, Refills 4.? L AB: Glucose, finger stick Value Reference Range V alue 124 * Delicia Taylor 4 01:40:32 PM EST > Notes: stable, no need for medication at this time, will continue to monitor?? 3.?Melanoma of skin? Notes: seeing derm every 6 months??4.?Essential hypertension? Notes: stable, will continue to monitor?? * Procedure Codes: 8 2947 ASSAY, GLUCOSE, BLOOD QUANT, Modifiers: QW * Follow Up: 3 Months * * Sign off status: Completed true * Provider: Kalin Alfaro MD Date: 12/28/2023 Generated for Reid cortes/Maik/Francescaitting on: 12/29/2024 01:11 PM EST History and Physical Notes * HPI (History of Present Illness) Category Sub-Category Detail Notes Category Not es Symptom(s) patient is a 64 yo female here for 6 month follow up visit Examination Category Sub-Category Detail Notes Category Not es General Examination GENERAL APPEARANCE: well dev eloped, well nourished, in no acute distress HEAD: normocephalic, atrau matic EYES: pupils equal, round, reactive to light and accommodation, sclera non-icteric EARS: normal THROAT: clear NECK/THYROID: neck supple, full ra nge of motion, no cervical lymphadenopathy, no bruits HEART: regular rate and rhy thm, S1, S2 normal, no murmurs LUNGS: clear to auscultatio n bilaterally ABDOMEN: soft, nontender, non distended, bowel sounds present, normal, no organomegaly , no masses palpable NEUROLOGIC: nonfocal, motor stre ngth normal upper and lower extremities, sensory exam intact SKIN: warm and dry, no mian picious lesions EXTREMITIES: no clubbing, cyanosi s, or edema BREASTS: No mass, no lump RECTAL EXAM: done by senior care specialist FEMALE GENITOURINARY: done by senior care specialist ORAL CAVITY: mucosa moist
--- OUTSIDE RECORDS SUMMARY | 2024-10-28 04:03 | XMS_ITS ---
Author Organization Colin Alfaro MD Address [address] [place] [phone] Care Team Providers Care Windows And Doors Installer Name Role Phone Angelina Colin Primary Care Provider [phone] REASON FOR VISIT Prescription Medications Medication SIG (Take, Route, Frequency, Duration) Notes Start Date End Date Status Atorvastatin Calcium 20 MG 1 tablet Oral ly Once a day 10/27/2024 Active Encounters Encounter Location Date Provider Diagnosis Colin Alfaro MD [address] [place] [phone] 10/28/2024 Colin Alfaro Prediabetes R73.09 Assessments Encounter Date Diagnosis (ICD Code) Assessment Notes Treatment Notes Treatment Clinical Notes Section Notes 10/28/2024 Prediabetes (ICD-10 - R73.09) Plan Of Treatment Medication Medication Name Sig Start Date Stop Date Notes Atorvastatin Calcium 20 MG 1 tablet Orally Once a day 10/11 Next Appt Details Provider Name:Colin Mireles ier, 11/01/2025 11:00:00 AM, [address] [place] [address], [address], [phone], Provider Name:Colin Mireles ier, 05/09/2026 07:00:00 AM, [address] [place] [address], [place] [address], [place], [place], [phone], Provider Name:Colin Mireles ier, 05/16/2026 10:30:00 AM, [address] [place] [address], [place] [address], [place], [place], [phone], Progress Notes * Dominique GREEN CDOB:1960 (64 yo F)Acc No.[id number]:10/28/2024 Patient: Armani watkinsDominique :1960 A ge:64 Y S ex:Female Address:[address] [place] [id number] * Refills Start Atorvastatin Calcium Tablet, 20 MG, Orally, 30, 1 tablet, Once a day, Refills=4 * true * Date: Generated for Reid cortes/Maik/Francescaitting on: 12/29/2024 01:13 PM EST
--- OUTSIDE RECORDS SUMMARY | 2025-02-05 02:15 | XMS_ITS ---
Author Organization Colin Alfaro MD Address [address] [place] [phone] Care Team Providers Care Discharge Door Operator Name Role Phone Colin Alfaro Primary Care Provider Results Component Value Reference Range Notes Liver Panel Reviewed date:02/05/2025 11:26:57 AM Interpretation: Performing Lab:[facility], [address] [place] [phone] Notes/Report: Bilirubin Total 1.4 0.0-1.0 mg/dL Bilirubin Direct 0.3 0.0-0.5 mg/dL Aspartate Amino Transferase 35 5-31 U/L Alanine Aminotransferase 50 0-31 U/L Total Protein 6.7 6.5-8.0 g/dL Albumin Level 4.2 3.5-5.0 g/dL Alkaline Phosphatase 138 39-117 U/L Glucose Fasting Reviewed date:02/05/2025 11:27:16 AM Interpretation: Performing Lab:[facility], [address] [place] [phone] Notes/Report: Glucose Fasting 107 60-99 mg/dL A fasting glucose from 100-125 mg/dl is considered impaired (pre-diabetes). Lipid Panel Reviewed date:02/05/2025 11:27:04 AM Interpretation: Performing Lab:[facility], [address] [place] [phone] Notes/Report: Triglycerides 97 <150 mg/dL Desirable Triglyceride: less than 150 mg/dL Borderline High Triglyceride 150-199 mg/dL High Triglyceride: 200-499 mg/dL Very High Triglyceride: greater than or equal to 5OO mg/dL Cholesterol 229 <200 mg/dL Desirable Cholesterol: less than 200 mg/dL Borderline High Cholesterol: 200-239 mg/dL High Cholesterol: greater than 239 mg/dL LDL Cholesterol Calculated 148 <100 mg/dL Desirable LDL: less than 100 mg/dL Near Optimal/Above Optimal LDL: 110-129 mg/dL Borderline High LDL: 130-159 mg/dL High LDL: 160-189 mg/dL Very High LDL: greater than or equal to 190 mg/dL HDL Cholesterol 62 >40 mg/dL Desirable HDL: greater than 40 mg/dL Note: This HDL assay may give artificially low results in patients with liver disease. Hemoglobin A1c Reviewed date:02/05/2025 11:26:46 AM Interpretation: Performing Lab:[facility], [address] [place] [phone] Notes/Report: Hemoglobin A1c % 5.8 <6.0 % Hemoglobin A1C Reference Range Adults: 4.8 - 6.0 % Non diabetic: < 6.0 % Goal: < 7.0 % Additional Action Suggested: > 8.0 % Note: Hemoglobin A1c results are invalid for patients with abnormal amounts of HbF. Blood transfusions may impact the HbA1c concentration in the patient sample. Estimated Average Glucose 120 eAG = Estimated average glucose which is %A1C expressed as average glucose, using the formula of the [id number] Average Glucose study (ADAG), Diabetes Care, Vol.31,#8, 2007 REASON FOR VISIT fasting liver and lipids panel Encounters Encounter Location Date Provider Diagnosis Colin Alfaro MD [address] [place], [place] [phone] 02/05/2025 Colin Alfaro Prediabetes R73.09 a nd Hypercholesterolemia E78.00 Assessments Encounter Date Diagnosis (ICD Code) Assessment Notes Treatment Notes Treatment Clinical Notes Section Notes 02/05/2025 Prediabetes (ICD-10 - R73.09) 02/05/2025 Hypercholesterolemia (ICD-10 - E78.00) Plan Of Treatment Next Appt Details Provider Name:Colin carias, 11/01/2025 11:00:00 AM, [address], [place], [place], [phone], Provider Name:Colin carias, 05/09/2026 07:00:00 AM, [address] [place] [address], Suite [facility], [place], [place], [phone], Provider Name:Colin carias, 05/16/2026 10:30:00 AM, [address], [place], [place], [phone], Progress Notes * NORMAChiara VILLEDAan CDOB:1960 (65 yo F)Acc No.[id number]:02/05/2025 Progress Note Patient: Dominique AGUIAR Provider: Kalin Alfaro MD :1960 A ge:64 Y S ex:Female Date:02/05/2025 Address:[address] [place], [place] [phone] Subjective: * Chief Complaints: * 1 . Fasting liver and lipids panel. * Medical History: Objective: * Vitals: Assessment: * Assessment: 1. P rediabetes - R73.09 (Primary) 2 . H ypercholesterolemia - E78.00 ? Plan: * Treatment: 2. H ypercholesterolemia L AB: Liver Panel (Collection Date & Time - 02/05/2025 07:15 AM) L AB: Glucose Fasting (Collection Date & Time - 02/05/2025 07:15 AM) L AB: Lipid Panel (Collection Date & Time - 02/05/2025 07:15 AM) L AB: Hemoglobin A1c (Collection Date & Time - 02/05/2025 07:15 AM) * Procedure Codes: 3 6415 VENIPUNCT, ROUTINE* * * The named appointment provid er may or may not be the originator of this progress note, and it is not deemed complete until electronically signed by the appointment provider. Sign off status: Pending * Provider: Kalin Alfaro MD Date: 0 02/05/2025 Generated for Reid cortes/Maik/Francescaitting on: 1 12/29/2024 01:13 PM EST
--- OUTSIDE RECORDS SUMMARY | 2025-02-16 09:00 | XMS_ITS ---
Author Organization Colin Alfaro MD Address [address] [place] [phone] Care Team Providers Care Youth Leader Name Role Phone Colin Alfaro Primary Care Provider Allergies No Known Allergies REASON FOR VISIT 3 month, Stopped Atorvastatin 01-25-25 Medications Medication SIG (Take, Route, Fr equency, Duration) Notes Start Date End Date Status Multivitamin Women - as directed Orally Active Coenzyme Q-10 60 MG as directed Orally d aily for 100 days 02/16/2025 Active Vital Signs Blood pressure systolic 182 mm Hg 02/17/20 25 Blood pressure diastolic 98 mm Hg 025 Height 63 in 02/16/2025 Weight 214 lbs 02/16/2025 BMI 37.9 kg/m2 02/16/2025 weight is up 13 pounds since Encounters Encounter Location Date Provider Diagnosis Colin Alfaro MD [address] [place] [phone] 02/16/2025 Colin Alfaro Prediabetes R73.09 a nd Hypercholesterolemia E78.00 Assessments Encounter Date Diagnosis (ICD Code) Assessment Notes Treatment Notes Treatment Clinical Notes Section Notes 02/16/2025 Prediabetes (ICD-10 - R73.09) stable, no need for medication at this time 02/16/2025 Hypercholesterolemia (ICD-10 - E78.00) patient verbalized understanding of new medication, will conitnue to monitor Plan Of Treatment Medication Medication Name Sig Start Date Stop Date Notes Coenzyme Q-10 60 MG as directed Orally daily for 100 days 02/16/2025 Treatment Notes Assessment Notes Prediabetes stable, no need for medication at this time Hypercholesterolemia patient verbalized understanding of new medication, will conitnue to monitor Next Appt Details Provider Name:Colin carias, 11/01/2025 11:00:00 AM, [address] [place] [address], [address], [phone], Provider Name:Colin carias, 05/09/2026 07:00:00 AM, [address] [place] [address], [phone], Provider Name:Colin carias, 05/16/2026 10:30:00 AM, [address] [place] [address], [phone], Progress Notes * Dominique GREEN CDOB:1960 (64 yo F)Acc No.[id number]:02/16/2025 Progress Notes Patient: Armani BRYANTALISADominique Catalina Provider: Kalin Alfaro MD :1960 A ge:64 Y S ex:Female Date:02/16/2025 Address:[address] [place], [place] [phone] Subjective: * Chief Complaints: * 3 monthStopped Atorvastatin 01-25-25 * HPI: S ymptom(s): patient is a 64 yo female was on vacation and forgot her atorvastatin. before that was aching all over and now is gone since not being on it. * ROS: G eneral/Constitutional: Denies C hills. D enies F atigue. D enies F ever. D enies H eadache. E NT: Patient denies d ecreased sense of smell, any loss of taste, sore throat. D enies S ore throat. R espiratory: Denies C ough. D enies S hortness of breath at rest. D enies S hortness of breath with exertion. G astrointestinal: Denies D iarrhea. D enies N ausea. M usculoskeletal: Patient denies m uscle aches. P eripheral Vascular: Patient denies r ed and blue toes. * Medical History: * Surgical History: * Hospitalization/Major Diagno stic Procedure: * Medications: T akingMultivitamin Women - Tablet as directed Orally Taking Multivitamin Women - Tablet as directed Orally DiscontinuedAtorvastatin Calcium 20 MG Tablet 1 tablet Orally Once a day Medication List reviewed and reconciled with the patientDiscontinued Atorvastatin Calcium 20 MG Tablet 1 tablet Orally Once a day Medication List reviewed and reconciled with the patient * Allergies: N .K.D.A.yes[Allergies Verified] Objective: * Vitals: H t: 63, Wt: 214, BMI:37.9, BP:182/98, Repeat BP:130/88, Wt-k.07. weight is up 13 pounds since. * P ast Orders: L ab:Liver Panel (Order Date - 02/05/2025) (Collection Date & Time - 02/05/2025 07:15 AM) Value Reference Range Bilirubin Total 1.4 H 0.0-1.0 - mg/dL Bilirubin Direct 0.3 0.0-0.5 - mg/dL Aspartate Amino Transferase 35 H 5-31 - U/L Alanine Aminotransferase 50 H 0-31 - U/L Total Protein 6.7 6.5-8.0 - g/dL Albumin Level 4.2 3.5-5.0 - g/dL Alkaline Phosphatase 138 H 39-117 - U/L L ab:Glucose Fasting (Order Date - 02/05/2025) (Collection Date & Time - 02/05/2025 07:15 AM) Value Reference Range Glucose Fasting 107 H 60-99 - mg/dL L ab:Lipid Panel (Order Date - 02/05/2025) (Collection Date & Time - 02/05/2025 07:15 AM) Value Reference Range Triglycerides 97 <150 - mg/dL Cholesterol 229 H <200 - mg/dL LDL Cholesterol Calculated 148 H <100 - mg/dL HDL Cholesterol 62 >40 - mg/dL L ab:Hemoglobin A1c (Order Date - 02/05/2025) (Collection Date & Time - 02/05/2025 07:15 AM) Value Reference Range Hemoglobin A1c % 5.8 <6.0 - % Estimated Average Glucose 120 - mg/dL * Examination: G eneral Examination: GENERAL APPEARANCE: a lert, well hydrated, in no distress.? HEAD: n ormocephalic. SKIN: g ood turgor. HEART: r egular rate and rhythm, no murmurs, rubs, gallops.? LUNGS: n o wheezes, rales, rhonchi, good air movement, clear to auscultation bilaterally. Assessment: * Assessment: 1. P rediabetes - R73.09 (Primary) 2 . H ypercholesterolemia - E78.00 ? Plan: * Treatment: 2. H ypercholesterolemia Start Coenzyme Q-10 Capsule, 60 MG, as directed, Orally, daily, 100 days, 100, Refills 3. ? Notes: patient verbalized understanding of new medication, will conitnue to monitor * Procedure Codes: * * Sign off status: Completed true * Provider: Kalin Alfaro MD Date: 0 02/16/2025 Generated for Reid cortes/Maik/Francescaitting on: 1 12/29/2024 01:13 PM EST History and Physical Notes * HPI (History of Present Illness) Category Sub-Category Detail Notes Category Not es Symptom(s) patient is a 64 yo female was on vacation and forgot her atorvastatin. before that was aching all over and now is gone since not being on it Examination Category Sub-Category Detail Notes Category Not es General Examination GENERAL APPEARANCE: alert, w ell hydrated, in no distress HEAD: normocephalic HEART: regular rate and rhy thm, no murmurs, rubs, gallops LUNGS: no wheezes, rales, r honchi, good air movement, clear to auscultation bilaterally SKIN: good turgor
--- OUTSIDE RECORDS SUMMARY | 2025-02-18 08:32 | XMS_ITS ---
Author Organization Colin Alfaro MD Address [address] [place] [phone] Care Team Providers Care Phlebotomy Manager Name Role Phone AngelinaColin Primary Care Provider REASON FOR VISIT med issue Medications Medication SIG (Take, Route, Fr equency, Duration) Notes Start Date End Date Status Coenzyme Q-10 60 MG as directed Orally d aily for 100 days 02/16/2025 Active Encounters Encounter Location Date Provider Diagnosis Colin Alfaro MD [address] [place] [phone] 02/18/2025 Colin Alfaro Hypercholesterolemia E78.00 Assessments Encounter Date Diagnosis (ICD Code) Assessment Notes Treatment Notes Treatment Clinical Notes Section Notes 02/18/2025 Hypercholesterolemia (ICD-10 - E78.00) Plan Of Treatment Medication Medication Name Sig Start Date Stop Date Notes Coenzyme Q-10 60 MG as directed Orally daily for 100 days 02/16/2025 Next Appt Details Provider Name:Colin Mireles ier, 11/01/2025 11:00:00 AM, [address] [place] [address], Suite [facility], [place], [place], [phone], Provider Name:Colin Mireles ier, 05/09/2026 07:00:00 AM, [address] [place] [address], [place] [address], [place], [place], [phone], Provider Name:Colin Mireles ier, 05/16/2026 10:30:00 AM, [address] [place] [address], [place] [address], [place], [place], [phone], Progress Notes * Dominique GREEN CDOB:1960 (64 yo F)Acc No.[id number]:02/18/2025 Patient: Dominique AGUIAR :1960 A ge:64 Y S ex:Female Address:[address] [place] [id number] * Refills Refill Coenzyme Q-10 Capsule, 60 MG, Orally, 100, as directed, daily, 100 days, Refills=3 * true * Date: Generated for Reid cortes/Maik/Francescaitting on: 12/29/2024 01:12 PM EST
--- OUTSIDE RECORDS SUMMARY | 2025-04-20 08:16 | XMS_ITS ---
Author Organization Colin Alfaro MD Address [address] [place] [phone] Care Team Providers Care Accounting Intern Name Role Phone Colin Alfaro Primary Care Provider REASON FOR VISIT ER Encounters Encounter Location Date Provider Diagnosis Colin Alfaro MD [address] [place], [place] [phone] 04/20/2025 Colin Alfaro Plan Of Treatment Next Appt Details Provider Name:Colin carias, 11/01/2025 11:00:00 AM, [address], [address] [facility], [place], [place], [phone], Provider Name:Colin carias, 05/09/2026 07:00:00 AM, [address], [address], [place], [place], [phone], Provider Name:Colin Mireles jv, 05/16/2026 10:30:00 AM, [address], [address], [place], [place], [phone], Progress Notes * Dominique GREEN CDOB:1960 (64 yo F)Acc No.[id number]:04/20/2025 Patient: Dominique AGUIAR Catalina :1960 A ge:64 Y S ex:Female Address:[address] [place] [id number] * true * Date: Generated for Reid cortes/Maik/Libertadsmitting on: 12/29/2024 01:13 PM EST
--- OUTSIDE RECORDS SUMMARY | 2025-04-26 09:46 | XMS_ITS ---
Author Organization Colin Alfaro MD Address [address] [place] [phone] Care Team Providers Care Subsurface Augmentee Elint Operator Name Role Phone Colin Alfaro Primary Care Provider [phone] REASON FOR VISIT RF Atorvastatin Encounters Encounter Location Date Provider Diagnosis Colin Alfaro MD [address] [place] [phone] 04/26/2025 Colin Alfaro Plan Of Treatment Next Appt Details Provider Name:Colin carias, 11/01/2025 11:00:00 AM, [address], [address], [place], [place], [phone], Provider Name:Colin carias, 05/09/2026 07:00:00 AM, [address], [address], [place], [place], [phone], Provider Name:Colin Mireles shadir, 05/16/2026 10:30:00 AM, [address], [address], [place], [place], [phone], Progress Notes * Dominique GREEN CDOB:1960 (64 yo F)Acc No.[id number]:04/26/2025 Patient: Dominique AGUIAR Catalina :1960 A ge:64 Y S ex:Female Address:[address] [place] [phone] * true * Date: Generated for Reid cortes/Maik/Libertadsmitting on: 12/29/2024 01:13 PM EST
--- OUTSIDE RECORDS SUMMARY | 2025-04-30 02:30 | XMS_ITS ---
Author Organization Colin Alfaro MD Address [address] [place] [phone] Care Team Providers Care Bar Gauger And Lubricator Tender Name Role Phone Colin Alfaro Primary Care Provider Results Component Value Reference Range Notes Complete Blood Count Auto Di ff Reviewed date:05/03/2025 05:30:33 PM Interpretation: Performing Lab:[facility], [address] [place] [phone] Notes/Report: White Blood Count 6.1 4.8-10.8 X10*3/uL Red Blood Count 4.40 4.20-5.50 X10*6/uL Hemoglobin 13.4 12.0-16.0 g/dl Hematocrit 41.3 37.0-47.0 % Mean Corpuscular Volume 93.9 80.0-98.0 fL Mean Corpuscular Hemoglobin 30.5 27.0-33.0 pg Mean Corpuscular HGB Conc 32.4 31.0-35.0 g/dl Red Cell Distribution Width 13.3 11.0-16.0 % Platelet Count 239 160-400 X10*3/uL Mean Platelet Volume 9.7 9.4-12.3 fL Neutrophils Percent Auto 49.8 45-73 % Imm Gran Pct Auto 0.2 0.0-0.4 % Lymphocytes Percent Auto 36.5 20-40 % Monocytes Percent Auto 10.6 2-11 % Eosinophils Percent Auto 2.4 0-4 % Basophils Percent Auto 0.5 0-2 % NRBC Pct Auto 0.0 0.0-0.2 /100WBC Neutrophils Absolute Auto 3.1 2.0-8.3 x10*3/u L Imm Gran Abs Auto 0.01 0.00-0.03 X10*3/uL Lymphocytes Absolute Auto 2.2 1.2-4.9 X10*3/u L Monocytes Absolute Auto 0.7 0.1-1.2 X10*3/uL Eosinophils Absolute Auto 0.2 0.0-0.4 X10*3/u L Basophils Absolute Auto 0.0 0.0-0.2 X10*3/uL NRBC Abs Auto 0.000 0.0-0.012 X10*3/uL Comprehensive [place]. Panel Fa st Reviewed date:04/30/2025 04:35:53 PM Interpretation: Performing Lab:[facility], [address] [place] [phone] Notes/Report: Sodium 143 135-145 mmol/L Potassium 3.8 3.3-5.1 mmol/L Chloride 110 96-108 mmol/L Carbon Dioxide 26 22-29 mmol/L Anion Gap 11 12-20 Blood Urea Nitrogen 17 9-16 mg/dL Creatinine 0.80 0.5-1.4 mg/dL Estimated Glomerular Filt Rate > 60 Chronic Kidney Disease: Estimated GFR < 60 mL/min/1.73m2 Severe Kidney Disease: Estimated GFR < 15 mL/min/1.73m2 Glucose Fasting 108 60-99 mg/dL A fasting glucose from 100-125 mg/dl is considered impaired (pre-diabetes). Calcium 9.4 8.4-10.2 mg/dL Bilirubin Total 1.0 0.0-1.0 mg/dL Aspartate Amino Transferase 32 5-31 U/L Alanine Aminotransferase 38 0-31 U/L Total Protein 6.8 6.5-8.0 g/dL Albumin Level 4.5 3.5-5.0 g/dL Alkaline Phosphatase 128 39-117 U/L Lipid Panel Reviewed date:04/30/2025 04:31:03 PM Interpretation: Performing Lab:[address] [phone] Notes/Report: Triglycerides 137 <150 mg/dL Desirable Triglyceride: less than 150 mg/dL Borderline High Triglyceride 150-199 mg/dL High Triglyceride: 200-499 mg/dL Very High Triglyceride: greater than or equal to 5OO mg/dL Cholesterol 170 <200 mg/dL Desirable Cholesterol: less than 200 mg/dL Borderline High Cholesterol: 200-239 mg/dL High Cholesterol: greater than 239 mg/dL LDL Cholesterol Calculated 93 <100 mg/dL Desirable LDL: less than 100 mg/dL Near Optimal/Above Optimal LDL: 110-129 mg/dL Borderline High LDL: 130-159 mg/dL High LDL: 160-189 mg/dL Very High LDL: greater than or equal to 190 mg/dL HDL Cholesterol 50 >40 mg/dL Desirable HDL: greater than 40 mg/dL Note: This HDL assay may give artificially low results in patients with liver disease. Vitamin D 25-OH Total Reviewed date:04/30/2025 04:31:31 PM Interpretation: Performing Lab:[address] [phone] Notes/Report: Vitamin D 25-OH Total 55.2 >30 ng/mL Health Based Reference Values* < 20 ng/mL Deficient 20-30 ng/mL Insufficient > 30 ng/mL Sufficient *Tien GRAY. N Engl J Med. 2007;357:266-280 There is no well-established upper level of normal vitamin D levels. Some laboratories use 50 ng/mL as an upper limit of normal. However, toxicity is patient-dependent and may occur at any level. Careful correlation with the patient's presentation is necessary and, if there is concern for vitamin D toxicity, treatment should be considered irrespective of the serum level. Care must be taken in interpreting Vitamin D results from different laboratories and methodologies. Published data demonstrated that results from patients undergoing hemodialysis may show a negative bias when tested with various automated 25-OH vitamin D assays when compared to LC-MS/MS. When testing samples from patients whose predominant form of Vitamin D is Vitamin D2, such as patients receiving Vitamin D2 supplementation, results that are subtherapeutic should be confirmed with another method such as LC-MS/MS. Microalbumin, Random Reviewed date:04/30/2025 04:30:37 PM Interpretation: Performing Lab:[address] [phone] Notes/Report: Creatinine Urine 140.30 Microalbumin Urine 8.0 Microalbum/Creatinine Ratio Ur 5.7 <30 ug/mg cr Albumin/Creatinine Ratio Reference Ranges: Normal: < 30 ug/mg creatinine Microalbuminuria: 30 - 300 ug/mg creatinine Clinical Albuminuria: > 300 ug/mg creatinine Hemoglobin A1c Reviewed date:04/30/2025 04:30:27 PM Interpretation: Performing Lab:[address] [phone] Notes/Report: Hemoglobin A1c % 5.6 <6.0 % Hemoglobin A1C Reference Range Adults: 4.8 - 6.0 % Non diabetic: < 6.0 % Goal: < 7.0 % Additional Action Suggested: > 8.0 % Note: Hemoglobin A1c results are invalid for patients with abnormal amounts of HbF. Blood transfusions may impact the HbA1c concentration in the patient sample. Estimated Average Glucose 114 eAG = Estimated average glucose which is %A1C expressed as average glucose, using the formula of the O0N-Hnfnyzr Average Glucose study (ADAG), Diabetes Care, Vol.31,#8, Jun. 2007 UA ClnCatch+Micro w/rflx Cul t Reviewed date:04/30/2025 04:31:21 PM Interpretation: Performing Lab:[address] [phone] Notes/Report: Urine, Clean Catch Color Urine Yellow Appearance Urine Clear PH 5.5 5.0-9.0 Glucose Urine UA Negative Negative mg/dL Urine Blood Negative Negative Specific [place] - Urine 1.025 1.005-1.025 Urine Protein Negative Neg-Trace mg/dL Urine Ketones Negative Negative mg/dL Nitrite Urine Negative Negative Leukocyte Esterase Urine Negative Negative RBC Urine 0-2 0-2 /HPF WBC Urine 0-5 0-5 /HPF Squamous Epithelial Cell Urine 0-2 0-2 /HPF Bacteria Urine None Seen None Seen Hyaline Casts Urine 0-2 0-2 /LPF REASON FOR VISIT yearly fasting labs Encounters Encounter Location Date Provider Diagnosis Colin Alfaro MD [address] [place] [phone] 04/30/2025 Colin Alfaro Blood tests for routine general physical examination Z00.00 ; Prediabetes R73.09 ; Essential hypertension I10 ; Vitamin D deficiency E55.9 ; Elevated LDL cholesterol level E78.00 and Lymphocytosis D72.820 Assessments Encounter Date Diagnosis (ICD Code) Assessment Notes Treatment Notes Treatment Clinical Notes Section Notes 04/30/2025 Blood tests for routine general physical examination (ICD-10 - Z00.00) 04/30/2025 Prediabetes (ICD-10 - R73.09) 04/30/2025 Essential hypertension (ICD-10 - I10) 04/30/2025 Vitamin D deficiency (ICD-10 - E55.9) 04/30/2025 Elevated LDL cholesterol level (ICD-10 - E78.00) 04/30/2025 Lymphocytosis (ICD-10 - D72.820) Plan Of Treatment Next Appt Details Provider Name:Colin carias, 11/01/2025 11:00:00 AM, [address] [place] [address], [phone], Provider Name:Colin carias, 05/09/2026 07:00:00 AM, [address] [place] [address], [address], [phone], Provider Name:Colin carias, 05/16/2026 10:30:00 AM, [address] [place] [address], [phone], Progress Notes * Dominique GREEN CDOB:1960 (65 yo F)Acc No.[id number]:04/30/2025 Progress Note Patient: Dominique AGUIAR Provider: Kalin Alfaro MD :1960 A ge:64 Y S ex:Female Date:04/30/2025 Address:[address] [place], [place] [phone] Subjective: * Chief Complaints: * 1 . Yearly fasting labs. * Medical History: Objective: * Vitals: Assessment: * Assessment: 1. B lood tests for routine general physical examination - Z00.00 (Primary) 2 .?Prediabetes - R73.09 3 . E ssential hypertension - I10 4 .?Vitamin D deficiency - E55.9 5 . E levated LDL cholesterol level - E78.00 6. L ymphocytosis - D72.820 Plan: * Treatment: 2. P rediabetes L AB: Complete Blood Count Auto Diff (Collection Date & Time - 04/30/2025 07:30 AM) L AB: Comprehensive [place]. Panel Fast (Collection Date & Time - 04/30/2025 07:30 AM) L AB: Lipid Panel (Collection Date & Time - 04/30/2025 07:30 AM) L AB: Vitamin D 25-OH Total (Collection Date & Time - 04/30/2025 07:30 AM) L AB: Microalbumin, Random (Collection Date & Time - 04/30/2025 07:30 AM) L AB: Hemoglobin A1c (Collection Date & Time - 04/30/2025 07:30 AM) L AB: UA ClnCatch+Micro w/rflx Cult (Collection Date & Time - 04/30/2025 07:30 AM) 3. E ssential hypertension L AB: Complete Blood Count Auto Diff (Collection Date & Time - 04/30/2025 07:30 AM) L AB: Comprehensive [place]. Panel Fast (Collection Date & Time - 04/30/2025 07:30 AM) L AB: Lipid Panel (Collection Date & Time - 04/30/2025 07:30 AM) L AB: Vitamin D 25-OH Total (Collection Date & Time - 04/30/2025 07:30 AM) L AB: Microalbumin, Random (Collection Date & Time - 04/30/2025 07:30 AM) L AB: Hemoglobin A1c (Collection Date & Time - 04/30/2025 07:30 AM) L AB: UA ClnCatch+Micro w/rflx Cult (Collection Date & Time - 04/30/2025 07:30 AM) 4. V itamin D deficiency L AB: Complete Blood Count Auto Diff (Collection Date & Time - 04/30/2025 07:30 AM) L AB: Comprehensive [place]. Panel Fast (Collection Date & Time - 04/30/2025 07:30 AM) L AB: Lipid Panel (Collection Date & Time - 04/30/2025 07:30 AM) L AB: Vitamin D 25-OH Total (Collection Date & Time - 04/30/2025 07:30 AM) L AB: Microalbumin, Random (Collection Date & Time - 04/30/2025 07:30 AM) L AB: Hemoglobin A1c (Collection Date & Time - 04/30/2025 07:30 AM) L AB: UA ClnCatch+Micro w/rflx Cult (Collection Date & Time - 04/30/2025 07:30 AM) 5. E levated LDL cholesterol level L AB: Complete Blood Count Auto Diff (Collection Date & Time - 04/30/2025 07:30 AM) L AB: Comprehensive [place]. Panel Fast (Collection Date & Time - 04/30/2025 07:30 AM) L AB: Lipid Panel (Collection Date & Time - 04/30/2025 07:30 AM) L AB: Vitamin D 25-OH Total (Collection Date & Time - 04/30/2025 07:30 AM) L AB: Microalbumin, Random (Collection Date & Time - 04/30/2025 07:30 AM) L AB: Hemoglobin A1c (Collection Date & Time - 04/30/2025 07:30 AM) L AB: UA ClnCatch+Micro w/rflx Cult (Collection Date & Time - 04/30/2025 07:30 AM) 6. L ymphocytosis L AB: Complete Blood Count Auto Diff (Collection Date & Time - 04/30/2025 07:30 AM) L AB: Comprehensive [place]. Panel Fast (Collection Date & Time - 04/30/2025 07:30 AM) L AB: Lipid Panel (Collection Date & Time - 04/30/2025 07:30 AM) L AB: Vitamin D 25-OH Total (Collection Date & Time - 04/30/2025 07:30 AM) L AB: Microalbumin, Random (Collection Date & Time - 04/30/2025 07:30 AM) L AB: Hemoglobin A1c (Collection Date & Time - 04/30/2025 07:30 AM) L AB: UA ClnCatch+Micro w/rflx Cult (Collection Date & Time - 04/30/2025 07:30 AM) * Procedure Codes: 3 6415 VENIPUNCT, ROUTINE* * * The named appointment provid er may or may not be the originator of this progress note, and it is not deemed complete until electronically signed by the appointment provider. Sign off status: Pending * Provider: Kalin Alfaro MD Date: 0 04/30/2025 Generated for Reid cortes/Maik/Manjeet on: 1 12/29/2024 01:12 PM EST
--- OUTSIDE RECORDS SUMMARY | 2025-05-06 06:00 | XMS_ITS ---
Author Organization Colin Alfaro MD Address [address] [place] [phone] Care Team Providers Care Adding Machine Mechanic Name Role Phone Colin Alfaro Primary Care Provider [phone] Allergies No Known Allergies REASON FOR VISIT annual visit Medications Medication SIG (Take, Route, Fr equency, Duration) Notes Start Date End Date Status Multivitamin Women - as directed Orally Active Social History Tobacco Use: Social History Observation Description Date Details (start date - stop date) Never Smoker NA - NA Tobacco Use/Smoking Question Answer Notes Patient is a nonsmoker Additional Findings: Tobacco Non-User Cu rrent non-smoker, currently using no form of tobacco Alcohol Screen Question Answer Notes Did you have a drink containing alcohol in the p ast year? No Points 0 Interpretation Negative Vital Signs Blood pressure systolic 138 mm Hg 05/06/20 25 Blood pressure diastolic 80 mm Hg 025 Height 63 in 05/06/2025 Weight 203 lbs 05/06/2025 BMI 35.96 kg/m2 05/06/2025 weight is down 11 pounds sin ce 4-8 Encounters Encounter Location Date Provider Diagnosis Colin Alfaro MD [address] [place] [address] [place] [phone] 05/06/2025 Colin Alfaro Annual physical exam Z00.00 ; Hypercholesterolemia E78.00 ; Essential hypertension I10 and Depression screening Z13.31 Assessments Encounter Date Diagnosis (ICD Code) Assessment Notes Treatment Notes Treatment Clinical Notes Section Notes 05/06/2025 Annual physical exam (ICD-10 - Z00.00) labs reviewed and and discussed with patient 05/06/2025 Hypercholesterolemia (ICD-10 - E78.00) is losing weight so will try without meds, will continue to monitor, pending future labs 05/06/2025 Essential hypertensi on (ICD-10 - I10) stable, will continue to monitor 05/06/2025 Depression screening (ICD-10 - Z13.31) negative screen Plan Of Treatment Treatment Notes Assessment Notes Annual physical exam labs reviewed and a nd discussed with patient Hypercholesterolemia is losing weight so will try without meds, will continue to monitor, pending future labs Essential hypertension stable, will cont inue to monitor Depression screening negative screen Pending Test Test Name Order Date Liver Panel 05/06/2025 Lipid Panel 05/06/2025 Next Appt Details Follow Up: 6 Months, Reason: Provider Name:Colin carias, 11/01/2025 11:00:00 AM, [address] [place] [address], [address], [phone], Provider Name:Colin carias, 05/09/2026 07:00:00 AM, [address] [place] [address], [address], [phone], Provider Name:Colin carias, 05/16/2026 10:30:00 AM, [address] [place] [address], [address], [phone], Progress Notes * Dominique GREEN CDOB:1960 (64 yo F)Acc No.[id number]:05/06/2025 Progress Notes Patient: Dominique AGUIAR Provider: Kalin Alfaro MD :1960 A ge:64 Y S ex:Female Date:05/06/2025 Address:[address] [place] [address] Subjective: * Chief Complaints: * A nnual visit * HPI: D epression Screening: PHQ-9 L ittle interest or pleasure in doing things N ot at all, F eeling down, depressed, or hopeless N ot at all, T rouble falling or staying asleep, or sleeping too much N ot at all, F eeling tired or having little energy N ot at all, P oor appetite or overeating N ot at all, F eeling bad about yourself or that you are a failure, or have let yourself or your family down N ot at all, T rouble concentrating on things, such as reading the newspaper or watching television N ot at all, M oving or speaking so slowly that other people could have noticed; or the opposite, being so fidgety or restless that you have been moving around a lot more than usual N ot at all, T houghts that you would be better off or of hurting yourself in some way N ot at all, T otal Score 0 . I nterpretation and Intervention D epression Screening Findings N egative, F ollow-Up for Depression : review of PHQ-9 found negative result, no follow-up needed. C ommunication Needs: Communication Needs D oes the patient have a hearing impairment N o, D oes the patient have a vision impairment? Y es, I f yes, what is the vision impairment? G lasses, D oes the patient have a cognition impairment? N o. F all Risk: History H ave you had any falls with injury in the past year? N o, H ave you had two or more falls in the past year? N o. S NISSA Questions: SDOH Questions I n the past year have you been worried about losing housing? N o, I n the past year have you or any family members you live with been unable to get any of the following when it was really needed? Check all that apply: N one. S ymptom(s): patient is a 64 yo female here for annual visit with review of recent labs and follow up of chronic issues. * ROS: G eneral/Constitutional: Change in appetite d enies. C hills d enies. F ever d enies. O phthalmologic: Blurred vision d enies. D ischarge d enies. P ain d enies. E NT: Decreased hearing d enies. S ore throat d enies.?Swollen glands d enies. E ndocrine: Cold intolerance d enies. E xcessive thirst d enies. H eat intolerance d enies. W eight loss d enies. R espiratory: Cough d enies. S hortness of breath at rest d enies. S hortness of breath with exertion d enies. W heezing d enies. C ardiovascular: Chest pain at rest d enies. C hest pain with exertion?denies. I rregular heartbeat d enies. S hortness of breath d enies. ? G astrointestinal: Abdominal pain d enies. C hange in bowel habits d enies. D iarrhea d enies. N ausea d enies. R ectal bleeding d enies. V omiting d enies . G enitourinary: Blood in urine d enies. D ifficulty urinating d enies. F requent urination d enies. U rinary incontinence D enies. M usculoskeletal: Painful joints d enies. W eakness d enies. ? S kin: Dry skin d enies. I tching d enies. D enies?Mole(s), changes in moles, new moles or any lesions of concern. D enies P hotosensitivity. R clemencia d enies. N eurologic: Dizziness d enies. F ainting d enies. H eadache?denies. * Medical History: * Surgical History: * Hospitalization/Major Diagno stic Procedure: * Family History: F ather: 54 yrs. M other: 69 yrs. 1 sister(s) . 1 son(s) , 1 daughter(s) . . Father-Aneurysm Mother-Colon Cancer, Denies mental health/substance abuse family history, No pertinent family medical history, Denies mental health/substance abuse family history, No pertinent family medical history. * Social History: T obacco Use: T obacco Use/Smoking P neelam is a n onsmoker, A dditional Findings: Tobacco Non-User C urrent non-smoker, currently using no form of tobacco. D rugs/Alcohol: A lcohol Screen D id you have a drink containing alcohol in the past year? N o, P oints 0 , I nterpretation N egative. M iscellaneous: C affeine: no. Children: yes. Community involvements: yes. Exercise: yes, walks around neighb orhood QD. Housing: owning. Living with: family. Marital status: . Occupation: works full-time, [employer]. Pets: dogsx2. Travel outside of the [place]: no. * Medications: T akingMultivitamin Women - Tablet as directed Orally Taking Multivitamin Women - Tablet as directed Orally DiscontinuedCoenzyme Q-10 60 MG Capsule as directed Orally daily Medication List reviewed and reconciled with the patientDiscontinued Coenzyme Q-10 60 MG Capsule as directed Orally daily Medication List reviewed and reconciled with the patient * Allergies: N .K.D.A.yes[Allergies Verified] Objective: * Vitals: H t: 63, Wt: 203, BMI:35.96, BP:138/80, Wt-k.08. weight is down 11 pounds since 02-16-25. * P ast Orders: L ab:UA ClnCatch+Micro w/rflx Cult (Order Date - 04/30/2025) (Collection Date & Time - 04/30/2025 07:30 AM) Value Reference Range Color Urine Yellow - Appearance Urine Clear - PH 5.5 5.0-9.0 - Glucose Urine UA Negative Negative - mg/dL Urine Blood Negative Negative - Specific [place] - Urine 1.025 1.005-1.025 - Urine Protein Negative Neg-Trace - mg/dL Urine Ketones Negative Negative - mg/dL Nitrite Urine Negative Negative - Leukocyte Esterase Urine Negative Negative - RBC Urine 0-2 0-2 - /HPF WBC Urine 0-5 0-5 - /HPF Squamous Epithelial Cell Urine 0-2 0-2 - /HP F Bacteria Urine None Seen None Seen - Hyaline Casts Urine 0-2 0-2 - /LPF L ab:Comprehensive Leslie. Panel Fast (Order Date - 04/30/2025) (Collection Date & Time - 04/30/2025 07:30 AM) Value Reference Range Sodium 143 135-145 - mmol/L Bilirubin Total 1.0 0.0-1.0 - mg/dL Aspartate Amino Transferase 32 H 5-31 - U/L Alanine Aminotransferase 38 H 0-31 - U/L Total Protein 6.8 6.5-8.0 - g/dL Albumin Level 4.5 3.5-5.0 - g/dL Alkaline Phosphatase 128 H 39-117 - U/L Potassium 3.8 3.3-5.1 - mmol/L Chloride 110 H 96-108 - mmol/L Carbon Dioxide 26 22-29 - mmol/L Anion Gap 11 L 12-20 - Blood Urea Nitrogen 17 H 9-16 - mg/dL Creatinine 0.80 0.5-1.4 - mg/dL Estimated Glomerular Filt Rate > 60 - Glucose Fasting 108 H 60-99 - mg/dL Calcium 9.4 8.4-10.2 - mg/dL L ab:Lipid Panel (Order Date - 04/30/2025) (Collection Date & Time - 04/30/2025 07:30 AM) Value Reference Range Triglycerides 137 <150 - mg/dL Cholesterol 170 <200 - mg/dL LDL Cholesterol Calculated 93 <100 - mg/dL HDL Cholesterol 50 >40 - mg/dL L ab:Microalbumin, Random (Order Date - 04/30/2025) (Collection Date & Time - 04/30/2025 07:30 AM) Value Reference Range Creatinine Urine 140.30 - mg/dL Microalbumin Urine 8.0 - mg/L Microalbum Creatinine Ratio Ur 5.7 <30 - ug/ mg cr L ab:Vitamin D 25-OH Total (Order Date - 04/30/2025) (Collection Date & Time - 04/30/2025 07:30 AM) Value Reference Range Vitamin D 25-OH Total 55.2 >30 - ng/mL L ab:Hemoglobin A1c (Order Date - 04/30/2025) (Collection Date & Time - 04/30/2025 07:30 AM) Value Reference Range Hemoglobin A1c % 5.6 <6.0 - % Estimated Average Glucose 114 - mg/dL * Examination: G eneral Examination: [...] LUNGS: c lear to auscultation bilaterally. BREASTS: d one by services account manager. ABDOMEN: s oft, nontender, nondistended, bowel sounds present, normal, no organomegaly , no masses palpable. RECTAL EXAM: d one by services account manager. FEMALE GENITOURINARY: d one by services account manager. EXTREMITIES: n o clubbing, cyanosis, or edema. NEUROLOGIC: n onfocal, motor strength normal upper and lower extremities, sensory exam intact. Assessment: * Assessment: 1. A nnual physical exam - Z00.00 (Primary) 2 . H ypercholesterolemia - E78.00 3 . E ssential hypertension - I10 4 . D epression screening - Z13.31 Plan: * Treatment: 2. H ypercholesterolemia L AB: Liver Panel (Ordered for 11/05/2025) L AB: Lipid Panel (Ordered for 11/05/2025) Notes: is losing weight so will try without meds, will continue to monitor, pending future labs? 3. E ssential hypertension Notes: stable, will continue to monitor 4. D epression screening Notes: negative screen * Procedure Codes: * Preventive Medicine: Counseling: C are goal follow-up plan: C ounseling for abnormal BMI provided?Yes, A sabrina Normal BMI Follow-up G iving encouragement to exercise. * Follow Up: 6 Months * * Sign off status: Completed true * Provider: Kalin Alfaro MD Date: 0 05/06/2025 Generated for Reid cortes/Maik/eTransmitting on: 1 12/29/2024 01:12 PM EST History and Physical Notes * HPI (History of Present Illness) Category Sub-Category Detail Notes Category Not es Symptom(s) patient is a 64 yo female here for annual visit with review of recent labs and follow up of chronic issues Depression Screening PHQ-9 Little inte rest or pleasure in doing things: Not at all Feeling down, depressed, or hopeless: No t at all Trouble falling or staying asleep, or sl eeping too much: Not at all Feeling tired or having little energy: N ot at all Poor appetite or overeating: Not at all Feeling bad about yourself o r that you are a failure, or have let yourself or your family down: Not at all Trouble concentrating on thi ngs, such as reading the newspaper or watching television: Not at all Moving or speaking so slowly that other people could have noticed; or the opposite, being so fidgety or restless that you have been moving around a lot more than usual: Not at all Thoughts that you would be b jaswinder off or of hurting yourself in some way: Not at all Total Score: 0 Interpretation and Intervention Depression Noam solorio Findings: Negative Follow-Up for Depression: : review of PH Q-9 found negative result, no follow-up needed SDOH Questions SDOH Questions In the past year have you been worried about losing housing?: No In the past year have you or any family members you live with been unable to get any of the following when it was really needed? Check all that apply:: None Fall Risk History Have you had any falls with injury i n the past year?: No Have you had two or more falls in the year?: No Communication Needs Communication Needs Does the patient have a hearing impairment: No Does the patient have a vision impairmen t?: Yes If yes, what is the vision impairment?: Glasses Does the patient have a cognition impair ment?: No Examination Category Sub-Category Detail Notes Category Not [...] no clubbing, cyanosi s, or edema BREASTS: done by services account manager RECTAL EXAM: done by services account manager FEMALE GENITOURINARY: done by services account manager ORAL CAVITY: mucosa moist
--- OUTSIDE RECORDS SUMMARY | 2025-10-28 02:30 | XMS_ITS ---
Author Organization Colin Alfaro MD Address [address] [place] [phone] Care Team Providers Care Tongue Presser Name Role Phone Colin Alfaro Primary Care Provider Results Component Value Reference Range Notes Liver Panel (Not yet reviewe d by provider) Interpretation: Performing Lab:[facility], [address] [place] [phone] Notes/Report: Bilirubin Total 0.9 0.0-1.0 mg/dL Bilirubin Direct 0.2 0.0-0.5 mg/dL Aspartate Amino Transferase 28 5-31 U/L Alanine Aminotransferase 28 0-31 U/L Total Protein 6.8 6.5-8.0 g/dL Albumin Level 4.4 3.5-5.0 g/dL Alkaline Phosphatase 121 39-117 U/L Lipid Panel (Not yet reviewe d by provider) Interpretation: Performing Lab:[facility], [address] [place] [phone] Notes/Report: Triglycerides 123 <150 mg/dL Desirable Triglyceride: less than 150 mg/dL Borderline High Triglyceride 150-199 mg/dL High Triglyceride: 200-499 mg/dL Very High Triglyceride: greater than or equal to 5OO mg/dL Cholesterol 261 <200 mg/dL Desirable Cholesterol: less than 200 mg/dL Borderline High Cholesterol: 200-239 mg/dL High Cholesterol: greater than 239 mg/dL LDL Cholesterol Calculated 182 <100 mg/dL Desirable LDL: less than 100 mg/dL Near Optimal/Above Optimal LDL: 110-129 mg/dL Borderline High LDL: 130-159 mg/dL High LDL: 160-189 mg/dL Very High LDL: greater than or equal to 190 mg/dL HDL Cholesterol 55 >40 mg/dL Desirable HDL: greater than 40 mg/dL Note: This HDL assay may give artificially low results in patients with liver disease. REASON FOR VISIT fasting liver lipids Encounters Encounter Location Date Provider Diagnosis Colin Alfaro MD [address] [place] [address] [place] [phone] 10/28/2025 Colin Alfaro Hypercholesterolemia E78.00 Assessments Encounter Date Diagnosis (ICD Code) Assessment Notes Treatment Notes Treatment Clinical Notes Section Notes 10/28/2025 Hypercholesterolemia (ICD-10 - E78.00) Plan Of Treatment Pending Test Test Name Order Date Liver Panel 10/28/2025 Lipid Panel 10/28/2025 Next Appt Details Provider Name:Colin carias, 11/01/2025 11:00:00 AM, [address] [place] [address], [address], [phone], Provider Name:Colin carias, 05/09/2026 07:00:00 AM, [address] [place] [address], [address], [phone], Provider Name:Colin carias, 05/16/2026 10:30:00 AM, [address] [place] [address], [address], [phone], Progress Notes * NORMA, Dominique CDOB:1960 (65 yo F)Acc No.[id number]:10/28/2025 Progress Note Patient: Dominique AGUIAR Provider: Kalin Alfaro MD :1960 A ge:65 Y S ex:Female Date:10/28/2025 Address:[address] [place] [address] Subjective: * Chief Complaints: * 1 . Fasting liver lipids. * Medical History: Objective: * Vitals: Assessment: * Assessment: 1. H ypercholesterolemia - E78.00 Plan: * Treatment: * * The named appointment provid er may or may not be the originator of this progress note, and it is not deemed complete until electronically signed by the appointment provider. Sign off status: Pending * Provider: Kalin Alfaro MD Date: 12/29/2024 Generated for Reid cortes/Maik/Francescaitting on: 12/29/2024 01:11 PM EST
[2025-10-28 12:30] LABS: Alanine Aminotransferase 28 U/L (0-31); Albumin Level 4.4 g/dL (3.5-5.0); Alkaline Phosphatase 121 U/L (39-117); Aspartate Amino Transferase 28 U/L (5-31); Cholesterol 261 mg/dL (<200); HDL Cholesterol 55 mg/dL (>40); Total Protein 6.8 g/dL (6.5-8.0); Triglycerides 123 mg/dL (<150)
--- OUTSIDE RECORDS SUMMARY | 2025-10-28 13:12 | XMS_ITS | Patient Health Record ---
Author Organization [facility] Address [address] [place] [address] Care Team Providers Care Punch Machine Hand Name Role Phone Colin Alfaro MD Primary Care Provider Socrates Whyte [phone] Allergies No Known Allergies Reason For Referral No Information Medications Medication SIG (Take, Route, Frequency, Duration) Notes Start Date End Date Status Tamoxifen Citrate 20 MG Tablet 1 tablet Orally Once a day; Duration: 30 day(s) Active Multivitamin - Tablet 1 tablet Orally On ce a day; Duration: 30 day(s) Active Immunizations Vaccine Route Administration Date Status Comme nts Influenza Unknown 09/27/2021 Administered Social History Social History Drugs/Alcohol: Social Info Question Answer Notes Alcohol Screen Did you have a drink containing alcohol in the past year? 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 [employer] Section Notes: She does not smoke nor use a ny significant amounts of alcohol She does not smoke nor use a ny significant amounts of alcohol She does not smoke nor use a ny significant amounts of alcohol Problems Problem Type SNOMED Code ICD Code Onset Dates Problem Status W/U Status Risk Notes Problem Screening for malignant neoplasm of colon (611814965) Encounter for screening for malignant neoplasm of colon (Z12.11) Active confirmed Problem Screening for malignant neoplasm of rectum (500927865) Encounter for screening for malignant neoplasm of rectum (Z12.12) Active confirmed Problem Preprocedural examination (243008231328411) Preprocedural examination (Z01.818) Active confirmed Problem Family History of Cancer of Colon (Situation) (003785675) Family history of colon cancer (Z80.0) Active confirmed Problem Diverticulosis of colon (040810548) Diverticulosis of colon (K57.30) Active confirmed Problem Epiploic appendagitis (8539623709982865 9) Epiploic appendagitis (K63.89) Active confirmed Plan Of Treatment Future Test Test Name Order Date COLONOSCOPY 10/26/2011 COLONOSCOPY 02/12/2017 Colonoscopy 12/14/2021 Insurance Providers Payer Name Payer Address Payer Phone Subscriber Number Group Number Insured Name Patient Relationship to Insured Coverage Start Date Coverage End Date [facility] [address] [place], [place] [id number] VAUGHN GREEN Self - patient is the insured Medical (General) History Medical History History ICD Code Irritable bowel syndrome--controlled by diet Denies NV,DM,CVA,Lung disease,renal dise ase Negative screening colonoscopy in 12/2011 except for internal hemorrhoids Colonoscopy in 02/2017 with a hyperplasti c polyp Epiploic appendagitis in 11/2021-treated in ER at [facility] with NSAIDs On Tamoxifen for preventive measures since 2018 in relation to a breast biopsy result in 2008 Surgical History Surgery Date(Month/Year) Ovarian cyst in 1988 Breast biopsy--benign 2009 Eyelid surgery 09/2021
--- OUTSIDE RECORDS SUMMARY | 2025-10-28 13:12 | XMS_ITS | Patient Health Record ---
Author Organization [facility] [place] Address [address] [place] [address] Care Team Providers Care Nursing Informatics Analyst Name Role Phone Colin Alfaro MD Primary Care Provider Kaitycaroline Felicita Paulson Unavailable [phone] Allergies No Known Allergies Reason For Referral No Information Medications Medication SIG (Take, Route, Frequency, Duration) Notes Start Date End Date Status Tamoxifen Citrate 20 MG 1 tablet Orally Once a day; Duration: 30 day(s) Active Night Splint AFO - L1930 as directed 08/08/2017 Active Immunizations Vaccine Route Administration Date Status Comme nts COVID-19 Pfizer BioNTech Vaccine Unknown 08/27/2021 Administered 1st 02/04/21 2nd 02/27/21 Social History Tobacco Use: Social History Observation Description Date Details (start date - stop date) Never Smoker NA - NA Tobacco Use/Smoking Question Answer Notes Are you a: nonsmoker Additional Findings: Tobacco Non-User Current no n-smoker Alcohol Screen Question Answer Notes Did you have a drink contain ing alcohol in the past year? Yes How often did you have a dri nk containing alcohol in the past year? Monthly or less (1 point) Points 1 Interpretation Negative Tobacco use other than smoking: Question Answer Notes Are you an other tobacco user? No Problems Problem Type SNOMED Code ICD Code Onset Dates Problem Status W/U Status Risk Notes Problem Achilles bursitis (640047530) Achilles tendinitis, right leg (M76.61) Active confirmed Plan Of Treatment Pending Test Test Name Order Date X ray : Foot, right 3V 04/03/2022 [id number] TENDON SHEATH/LIGAMENT 1 11/19/2016 Insurance Providers Payer Name Payer Address Payer Phone Subscriber Number Group Number Insured Name Patient Relationship to Insured Coverage Start Date Coverage End Date Charbel Peterson [address] [place] [address] [id number] Dominique Scott Self - patient is the insured Medical (General) History Medical History History ICD Code Chicken pox Surgical History Surgery Date(Month/Year) ovarian surgery cyst 02/1989 breast surgery non cancer lumps 03/2009 eyes lift 09/2021
--- OUTSIDE RECORDS SUMMARY | 2025-10-28 13:12 | XMS_ITS | Patient Health Record ---
Author Organization Colin Alfaro MD Address [address] [place] [phone] Care Team Providers Care Assistant Speech Language Pathologist Name Role Phone Colin Alfaro Primary Care Provider Allergies No Known Allergies Results Component Value Reference Range Notes Liver Panel Reviewed date:02/05/2025 11:26:57 AM Interpretation: Performing Lab:[facility], [address] [place] [phone] Notes/Report: Bilirubin Total 1.4 0.0-1.0 mg/dL Bilirubin Direct 0.3 0.0-0.5 mg/dL Aspartate Amino Transferase 35 5-31 U/L Alanine Aminotransferase 50 0-31 U/L Total Protein 6.7 6.5-8.0 g/dL Albumin Level 4.2 3.5-5.0 g/dL Alkaline Phosphatase 138 39-117 U/L Glucose Fasting Reviewed date:02/05/2025 11:27:16 AM Interpretation: Performing Lab:[facility], [address] [place] [phone] Notes/Report: Glucose Fasting 107 60-99 mg/dL A fasting glucose from 100-125 mg/dl is considered impaired (pre-diabetes). Lipid Panel Reviewed date:02/05/2025 11:27:04 AM Interpretation: Performing Lab:[facility], [address] [place] [phone] Notes/Report: Triglycerides 97 <150 mg/dL Desirable Triglyceride: [...] A1c Reviewed date:02/05/2025 11:26:46 AM Interpretation: Performing Lab:[facility], [address] [place] [phone] Notes/Report: Hemoglobin A1c % 5.8 <6.0 % [...] average glucose, using the formula of the M5E-Sszjpms Average Glucose study (ADAG), Diabetes Care, Vol.31,#8, 2007 Complete Blood Count Auto Di ff Reviewed date:05/03/2025 05:30:33 PM Interpretation: Performing Lab:[facility], [address] [place] [phone] Notes/Report: White Blood Count 6.1 4.8-10.8 X10*3/uL [...] 0.0-0.2 /100WBC Neutrophils Absolute Auto 3.1 2.0-8.3 x10*3/uL Imm Gran Abs Auto 0.01 0.00-0.03 X10*3/uL Lymphocytes Absolute Auto 2.2 1.2-4.9 X10*3/uL Monocytes Absolute Auto 0.7 0.1-1.2 X10*3/uL Eosinophils Absolute Auto 0.2 0.0-0.4 X10*3/uL Basophils Absolute Auto 0.0 0.0-0.2 X10*3/uL NRBC Abs Auto 0.000 0.0-0.012 X10*3/uL Comprehensive [place]. Panel Fa st Reviewed date:04/30/2025 04:35:53 PM Interpretation: Performing Lab:[facility], [address] [place] [phone] Notes/Report: Sodium 143 135-145 mmol/L Potassium 3.8 [...] Panel Reviewed date:04/30/2025 04:31:03 PM Interpretation: Performing Lab:[address] [phone] Notes/Report: Triglycerides 137 <150 mg/dL Desirable Triglyceride: [...] Total Reviewed date:04/30/2025 04:31:31 PM Interpretation: Performing Lab:[address] [phone] Notes/Report: Vitamin D 25-OH Total 55.2 >30 [...] Random Reviewed date:04/30/2025 04:30:37 PM Interpretation: Performing Lab:[facility], [address] [place] [phone] Notes/Report: Creatinine Urine 140.30 Microalbumin Urine 8.0 Microalbum/Creatinine Ratio Ur 5.7 <30 ug/mg cr Albumin/Creatinine Ratio Reference Ranges: Normal: < 30 ug/mg creatinine Microalbuminuria: 30 - 300 ug/mg creatinine Clinical Albuminuria: > 300 ug/mg creatinine Hemoglobin A1c Reviewed date:04/30/2025 04:30:27 PM Interpretation: Performing Lab:[facility], [address] [place] [phone] Notes/Report: Hemoglobin A1c % 5.6 <6.0 % [...] average glucose, using the formula of the W0G-Bvyevsc Average Glucose study (ADAG), Diabetes Care, Vol.31,#8, Jun. 2007 UA ClnCatch+Micro w/rflx Cul t Reviewed date:04/30/2025 04:31:21 PM Interpretation: Performing Lab:[facility], [address] [place] [phone] Notes/Report: Urine, Clean Catch Color Urine Yellow Appearance Urine Clear PH 5.5 5.0-9.0 Glucose Urine UA Negative Negative mg/dL Urine Blood Negative Negative Specific [place] - Urine 1.025 1.005-1.025 Urine Protein Negative Neg-Trace mg/dL Urine Ketones Negative Negative mg/dL Nitrite Urine Negative Negative Leukocyte Esterase Urine Negative Negative RBC Urine 0-2 0-2 /HPF WBC Urine 0-5 0-5 /HPF Squamous Epithelial Cell Urine 0-2 0-2 /HPF Bacteria Urine None Seen None Seen Hyaline Casts Urine 0-2 0-2 /LPF Liver Panel (Not yet reviewe d by provider) Interpretation: Performing Lab:[facility], [address] [place] [phone] Notes/Report: Bilirubin Total 0.9 0.0-1.0 mg/dL Bilirubin Direct 0.2 0.0-0.5 mg/dL Aspartate Amino Transferase 28 5-31 U/L Alanine Aminotransferase 28 0-31 U/L Total Protein 6.8 6.5-8.0 g/dL Albumin Level 4.4 3.5-5.0 g/dL Alkaline Phosphatase 121 39-117 U/L Lipid Panel (Not yet reviewe d by provider) Interpretation: Performing Lab:[facility], [address] [place] [phone] Notes/Report: Triglycerides 123 <150 mg/dL Desirable Triglyceride: [...] low results in patients with liver disease. Rose Mora Reviewed date:02/05/2025 11:26:29 AM Interpretation: Performing Lab:[facility], [address] [place] [phone] Notes/Report: Rose Mora See Note Specimen held untested for 24 hours; Call to request Chemistry testing. Complete Blood Count Auto Di ff Reviewed date:04/13/2025 04:37:14 PM Interpretation: Performing Lab:[facility], [address] [place] [phone] Notes/Report: White Blood Count 6.6 4.8-10.8 X10*3/uL Red Blood Count 4.47 4.20-5.50 X10*6/uL Hemoglobin 13.8 12.0-16.0 g/dl Hematocrit 40.8 37.0-47.0 % Mean Corpuscular Volume 91.3 80.0-98.0 fL Mean Corpuscular Hemoglobin 30.9 27.0-33.0 pg Mean Corpuscular HGB Conc 33.8 31.0-35.0 g/dl Red Cell Distribution Width 13.2 11.0-16.0 % Platelet Count 261 160-400 X10*3/uL Mean Platelet Volume 9.1 9.4-12.3 fL Neutrophils Percent Auto 54.0 45-73 % Imm Gran Pct Auto 0.3 0.0-0.4 % Lymphocytes Percent Auto 34.8 20-40 % Monocytes Percent Auto 9.1 2-11 % Eosinophils Percent Auto 1.2 0-4 % Basophils Percent Auto 0.6 0-2 % NRBC Pct Auto 0.0 0.0-0.2 /100WBC Neutrophils Absolute Auto 3.6 2.0-8.3 x10*3/uL Imm Gran Abs Auto 0.02 0.00-0.03 X10*3/uL Lymphocytes Absolute Auto 2.3 1.2-4.9 X10*3/uL Monocytes Absolute Auto 0.6 0.1-1.2 X10*3/uL Eosinophils Absolute Auto 0.1 0.0-0.4 X10*3/uL Basophils Absolute Auto 0.0 0.0-0.2 X10*3/uL NRBC Abs Auto 0.000 0.0-0.012 X10*3/uL Comprehensive Met. Panel Reviewed date:04/13/2025 02:48:03 PM Interpretation: Performing Lab:[facility], [address] [place] [phone] Notes/Report: Sodium 142 135-145 mmol/L Potassium 3.7 3.3-5.1 mmol/L Chloride 108 96-108 mmol/L Carbon Dioxide 23 22-29 mmol/L Anion Gap 15 12-20 Blood Urea Nitrogen 20 9-16 mg/dL Creatinine 0.91 0.5-1.4 mg/dL Creatinine Clr Calc Pharmacy 65.4 Provided height and weight: 162.56 cm, 81.647 kg. eGFR (calculated from the MDRD study equation) and eCrCl (calculated from the Cockcroft-Gault equation) are based on different parameters and may not yield comparable results. If eCrCl result is absurd, please check patient's height/weight. Estimated Glomerular Filt Rate > 60 Chronic Kidney Disease: Estimated GFR < 60 mL/min/1.73m2 Severe Kidney Disease: Estimated GFR < 15 mL/min/1.73m2 Glucose Random 167 60-115 mg/dL Calcium 9.9 8.4-10.2 mg/dL Bilirubin Total 1.9 0.0-1.0 mg/dL Slight Icte damien. Aspartate Amino Transferase 39 5-31 U/L Alanine Aminotransferase 41 0-31 U/L Total Protein 7.3 6.5-8.0 g/dL Albumin Level 4.6 3.5-5.0 g/dL Alkaline Phosphatase 140 39-117 U/L Lipase Reviewed date:04/13/2025 04:33:05 PM Interpretation: Performing Lab:[facility], [address] [place] [phone] Notes/Report: Lipase 23 8-78 U/L XR foot LT min 3V Reviewed date:04/13/2025 04:35:18 PM Interpretation: Performing Lab: Notes/Report: [address] [address] XRay Report Signed Patient: Dominique Green MR#: [id number] 9 : 1960 Acct:[id number] Age/Sex: 64 / F ADM Date: 04/13/25 Loc: HO.ED Attending Dr: Ordering Physician: Eldon Riley Date of Service: 04/13/25 Procedure(s): XR foot LT min 3V Accession Number(s): [id number] cc: Colin Alfaro MD; Eldon Riley EXAMINATION: XR FOOT, LEFT CLINICAL INFORMATION: trauma COMPARISON: None available. TECHNIQUE: AP, lateral, and oblique views of the left foot. FINDINGS: There is an accessory ossification medial to the PIP joint of third digit with associated widening of the medial joint space. Faint calcific density is present dorsal to the DIP joint of the second digit. Mild to moderate enthesophytes are evident at the plantar fascial and Achilles attachment onto calcaneus. There is also small bony spur midway between the 2 enthesophytes. XR/XR foot LT min 3V IMPRESSION: Tiny calcific density dorsal to the second PIP joint. This probably chronic, correlate for signs symptoms of acute tenderness. Variant ossification is noted at the head of the third proximal phalanx. Incidental note is made of calcaneal spurs. Electronically signed by: Davie Emanuel MD 04/13/2025 01:48 PM EDT RP Dictated By: Davie Emanuel MD Signed By: <Electronically signed by Davie Emanuel MD in OV> 04/13/25 1348 DD/ 1235 TD/TT: 04/13/25 1318 [address]: [place] [address] XRay Report Signed Patient: Dominique Green MR#: [id number] 9 : 1960 Acct:[id number] Age/Sex: 64 / F ADM Date: 04/13/25 Loc: HO.ED Attending Dr: Ordering Physician: Eldon Riley Date of Service: 04/13/25 Procedure(s): XR arash t LT min 3V Accession Number(s): [id number] cc: Colin Alfaro MD; Eldon Riley EXAMINATION: XR FOOT, LEFT CLINICAL INFORMATION: trauma COMPARISON: None available. TECHNIQUE: AP, lateral, and oblique views of the left foot. FINDINGS: There is an accessor y ossification medial to the PIP joint of third digit with associate d widening of the medial joint space. Faint calcific densi ty is present dorsal to the DIP joint of the second digit. Mild to moderate enthesophytes are evident at the plantar fascial and Achilles attachment onto calcaneus. There is also small bony spur midway between the 2 enthesophytes. XR/XR foot LT min 3V IMPRESSION: Tiny calcific densit y dorsal to the second PIP joint. This probably chronic, correlate f or signs symptoms of acute tenderness. Variant ossification is noted at the head of the third proximal phalanx. Incidental note is made of calcaneal spurs. Electronically inocencio d by: Davie Emanuel MD 04/13/2025 01:48 PM EDT RP Dictated By: Davie Emanuel MD Signed By: <Electronically signed by Davie Emanuel MD in OV> 04/13/25 1348 DD/ 1235 TD/TT: 04/13/25 1318 Wool [place]er: Rose Mora Reviewed date:04/30/2025 12:08:56 PM Interpretation: Performing Lab:[facility], [address] [place] [phone] Notes/Report: Rose Mora See Note Specimen held untested for 24 hours; Call to request Chemistry testing. Reason For Referral No Information Medications Medication SIG (Take, Route, Fr equency, Duration) Notes Start Date End Date Status Multivitamin Women - as directed Orally Active Immunizations Vaccine Route Administration Date Status Comme nts Flu Vaccine IM Intramuscular 08/28/2011 Administered TDaP IM Intramuscular 04/08/2012 Administered Flu Vaccine IM Intramuscular 10/13/2012 Administered Flu Vaccine IM Intramuscular 08/18/2013 Administered [facility] Flu Vaccine IM Intramuscular 08/18/2014 Administered [facility] Flu Vaccine Unknown 08/13/2015 Administered pt recieved the vaccine at [facility] in [place]. Flu Vaccine IM Intramuscular 09/20/2016 Administered pt rudd d the vaccine at [facility] in [place]. Flu Vaccine Unknown 10/28/2017 Administered pt was give n the vaccine at work. Fluarix Quadrivalent IM Intramuscular 12/15/2018 Administe red at work, [facility] Fluarix Quadrivalent IM Intramuscular 07/25/2019 Adminevelyne shania pt was given the vaccine at [facility] in [place]. Fluarix Quadrivalent Unknown 08/04/[address] [facility] Tetanus Unknown 04/08/2012 Administered PPSV23 (Pnemovax) IM Intramuscular 10/11/2020 Administered Covid Vaccine Unknown 01/30/2021 Administered Pfizer Covid Vaccine Unknown 02/20/2021 Administered Pfizer Shingrix Unknown 04/06/2021 Administered [facility] Shingrix Unknown 06/08/2021 Administered Fluarix Quadrivalent Unknown 07/24/2021 Administered SARS-COV-2 Pfizer Unknown 08/27/2021 Administered Fluarix Quadrivalent Unknown 09/27/2022 Administered SARS-COV-2 Pfizer Unknown 09/27/2022 Administered Fluarix Quadrivalent IM Intramuscular 07/18/2023 Adminerica jauregui Fluarix Quadrivalent - 150 IM Intramuscular 07/21/2024 Administered Flu Vaccine Unknown 07/28/2015 Refused PPSV23 (Pnemovax) Unknown 02/26/2019 Refused Tetanus Unknown 04/08/2012 Pending Social History Tobacco Use: Social History Observation [...] ast year? No Points 0 Interpretation Negative Problems Problem Type SNOMED Code ICD Code Onset Dates Problem Status W/U Status Risk Notes Problem Adhesive capsulitis of shoulder (114034062) Adhesive capsulitis of shoulder (726.0) Active confirmed Problem 90789501 PVC (premature ventricular contraction) (I49.3) Active confirmed Problem 20522918 Lymphocytosis (D72.820) Active confirm ed Problem 79259127 Vitamin D defici ency (E55.9) Active confirmed Problem 11787327 Essential hypert ension (I10) Active confirmed Problem 0146668 Prediabetes (R73.09) Active confirmed Problem 798910255 Low HDL (under 4 0) (E78.6) Active confirmed Problem 60269617 RBBB (I45.10) Active confirmed Problem 105009892 Asthmatic bronch itis, mild intermittent, uncomplicated (J45.20) Active confirmed Problem 881894852 History of abnor mal mammogram (Z87.898) Active confirmed Problem 230320122 Acoustic neuroma (D33.3) Active confirmed Problem 000168380 Elevated LDL cholesterol level (E78.00) Active confirmed Problem 99765332 Hypercholesterol emia (E78.00) Active confirmed Problem 474175361 BMI 35.0-35.9,ad ult (Z68.35) Active confirmed Problem 76374486 Paresthesia (R20.2) Active confirmed Problem 48088265 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, 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) Active confirmed Problem 903557715 Osteopenia deter mined by x-ray (M85.80) Active confirmed Problem 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) Active confirmed Problem Melanoma of skin (53233293) Melanoma of skin (C43.9) Active confirmed Problem 396299853 Gastroesophageal reflux disease with esophagitis without hemorrhage (K21.00) Active confirmed Vital Signs Blood pressure diastolic 80 mm Hg 05/06/2025 tita ght is down 11 pounds since 02-16-25 Height 63 in 05/06/2025 weight is down 11 pounds since 02-16-25 Blood pressure systolic 138 mm Hg 05/06/2025 weig ht is down 11 pounds since 02-16-25 Weight 203 lbs 05/06/2025 weight is down 11 pounds since 02-16-25 BMI 35.96 kg/m2 05/06/2025 weight is down 11 pounds since 02-16-25 Encounters Encounter Location Date Provider Diagnosis Colin Alfaro MD [address] [place] [id number] 02/05/2025 Colin Alfaro Prediabetes R73.09 a nd Hypercholesterolemia E78.00 Colin Alfaro MD [address] [place] [id number] 04/30/2025 Colin Alfaro Blood tests for rout ine general physical examination Z00.00 ; Prediabetes R73.09 ; Essential hypertension I10 ; Vitamin D deficiency E55.9 ; Elevated LDL cholesterol level E78.00 and Lymphocytosis D72.820 Colin Alfaro MD [address] [place] [id number] 10/28/2025 Colin Alfaro Hypercholesterolemia E78.00 Colin Alfaro MD [address] [place] [id number] 02/16/2025 Colin Alfaro Prediabetes R73.09 a nd Hypercholesterolemia E78.00 Colin Alfaro MD [address] [place] [id number] 05/06/2025 Colin Alfaro Annual physical exam Z00.00 ; Hypercholesterolemia E78.00 ; Essential hypertension I10 and Depression screening Z13.31 Colin Alfaro MD [address] [place] [id number] 02/18/2025 Colin Alfaro Hypercholesterolemia E78.00 Colin Alfaro MD [address] [place] [address] [id number] 04/20/2025 Colin Alfaro MD [address] [place] [id number] 04/26/2025 Colin Alfaro MD [address] [place] [address] [id number] 10/28/2024 Colin Alfaro Prediabetes R73.09 Assessments Encounter Date Diagnosis (ICD Code) Assessment Notes Treatment Notes Treatment Clinical Notes Section Notes 02/05/2025 Prediabetes (ICD-10 - R73.09) 04/30/[address] ine general physical examination (ICD-10 - Z00.00) 10/28/2025 Hypercholesterolemia (ICD-10 - E78.00) 02/16/2025 Prediabetes (ICD-10 - R73.09) stable, no need for medication at this time 05/06/2025 Annual physical exam (ICD-10 - Z00.00) labs reviewed and and discussed with patient 05/06/2025 Hypercholesterolemia (ICD-10 - E78.00) is losing weight so will try without meds, will continue to monitor, pending future labs 02/18/2025 Hypercholesterolemia (ICD-10 - E78.00) 10/28/2024 Prediabetes (ICD-10 - R73.09) 02/05/2025 Hypercholesterolemia (ICD-10 - E78.00) 04/30/2025 Prediabetes (ICD-10 - R73.09) 02/16/2025 Hypercholesterolemia (ICD-10 - E78.00) patient verbalized understanding of new medication, will conitnue to monitor 05/06/2025 Essential hypertensi on (ICD-10 - I10) stable, will continue to monitor 04/30/2025 Essential hypertensi on (ICD-10 - I10) 05/06/2025 Depression screening (ICD-10 - Z13.31) negative screen 04/30/2025 Vitamin D deficiency (ICD-10 - E55.9) 04/30/2025 Elevated LDL cholesterol level (ICD-10 - E78.00) 04/30/2025 Lymphocytosis (ICD-1 0 - D72.820) Plan Of Treatment Pending Test Test Name Order Date Electrocardiogram (EKG) 01/06/2016 Electrocardiogram (EKG) 02/13/2018 NUC MYOCARDIAL PERF SPECT W MIBI 014 BONE DENSITY DEXA 04/15/2023 BONE DENSITY DEXA 04/22/2023 MAMMOGRAM DIGITAL BILATERAL SCREEN 09/30 Stress Test 11/06/2013 Cardiac Event Monitor 01/18/2017 XR DEXA axial skeleton 08/17/2021 Liver Panel 10/28/2025 Lipid Panel 10/28/2025 Next Appt Details Provider Name:Colin carias, 11/01/2025 11:00:00 AM, [address] [place] [address], [address], [phone], Provider Name:Colin carias, 05/09/2026 07:00:00 AM, [address] [place] [address], [address], [phone], Provider Name:Colin carias, 05/16/2026 10:30:00 AM, [address] [place] [address], [phone], Insurance Providers Payer Name Payer Address Payer Phone Subscriber Number Group Number Insured Name Patient Relationship to Insured Coverage Start Date Coverage End Date [employer] [address] [place], [place] [id number] [phone] [id number] Dominique Green Self - patient is the insured Medical (General) History Medical History History ICD Code colonoscopy 12/2011 - f/u 5 y ears; colonoscopy 02/28/[address] 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
--- OUTSIDE RECORDS SUMMARY | 2025-10-28 13:13 | XMS_ITS | Encounter Summary ---
Author Organization [facility] Address [address] [place] [phone] Phone Care Team Providers Care Desk Interviewer Name Role Phone Colin Alfaro MD Primary Care Provider Encounter Details Date Type Department Care Team (Late st Contact Info) Description 04/21/2025 Procedure Pass OR Admitting Dept - Virtual Department [address] [place] [address] Social History Tobacco Use Types Packs/Day Years Used Date Smoking Tobacco: Never Smokeless Tobacco: Never Alcohol Use Standard Drinks/Week Comments Never 0 (1 standard drink = 0.6 oz pur e alcohol) Education Answer Date Recorded Are you interested in more education? Not on last e 04/19/2025 Are you concerned about learning? Not on file 04/19/2025 No 04/19/2025 No 04/19/2025 Digital Access Answer Date Recorded No 04/19/2025 No 04/19/2025 Reliable internet access at home? Not on file 04/19/2025 Device with a working camera? Not on file Comments No Sex and Gender Information Value Date Recorded Sex Assigned at Not on file Legal Sex Female 5:18 PM EST Gender Identity Not on file Sexual Orientation Not on file documented as of this encounter Plan of Treatment Not on file documented as of this encounter Visit Diagnoses Not on filedocumented in this encounter Care Teams Desk Interviewer Relationship Specialty Start Date End Date Colin Alfaro MD [address] [place] [address] [place] [address] PCP - General 03/18/15 documented as of this encounter Additional Source Comments The information contained in this document represents components of the legal health record. It is not the complete legal health record.[facility]
--- OUTSIDE RECORDS SUMMARY | 2025-10-28 13:13 | XMS_ITS | Clinical Summary ---
Author Organization [facility] Address [address] [place] [phone] Phone Care Team Providers Care Dude Ranch Manager Name Role Phone Colin Alfaro MD Primary Care Provider Allergies No known active allergies Medications atorvastatin (LIPITOR) 20 MG tablet Take 20 mg by mouth daily. Active coenzyme Q10 100 mg capsule Take 100 mg by mouth daily. Active therapeutic multivitamin tablet Take 1 tablet by mouth daily. Active oxyCODONE 5 MG immediate release tablet Take 1 tablet (5 mg total) by mouth every 6 (six) hours as needed for pain (specific location in comments). Partial fill ok 12 tablet Active Active Problems Problem Noted Date Diagnosed Date Open displaced fracture of lesser toe of left fo ot 04/21/2025 Laceration of toe involving extensor tendon 04/11 Encounters Date Type Department Care Team Description 10/14/2025 12:00 PM EST Office Visit [facility] [address] [place] [address] Leonard Dixon PA-C Injury of left middle finger (Primary Dx); Laceration of left middle finger without foreign body without damage to nail, initial encounter 10/14/2025 11:38 AM EST - 10/14/2025 11:59 PM EST Hospital Encounter [facility] [address] [place] [address] Dixon, Leonard Sean, PA-C Discharge Disposition: Home or Self Care from Last 3 Months Social History Tobacco Use Types Packs/Day Years Used Date Smoking Tobacco: Never Smokeless Tobacco: Never Tobacco Cessation:Counseling Given: Not Answered Alcohol Use Standard Drinks/Week Comments Never 0 [...] on file Sexual Orientation Not on file Last Filed Vital Signs Vital Sign Reading Time Taken Comments Blood Pressure 157/80 04/21/2025 1:25 PM EDT Pulse 63 04/21/2025 12:30 PM EDT Temperature 36.6 C (97.9 F) 04/21/2025 1:25 PM EDT Respiratory Rate 11 04/21/2025 12:30 PM EDT Oxygen Saturation 98% 04/21/2025 1:25 PM EDT Inhaled Oxygen Concentration - - Weight 94.8 kg (209 lb) 04/21/2025 7:55 AM EDT Height 157.5 cm (5' 2 ) 04/21/2025 7:55 AM EDT Body Mass Index 38.23 04/21/2025 7:55 AM EDT Plan of Treatment Health Maintenance Due Date Last Done Comments LIPID PANEL 1961 DEPRESSION SCREENING 1973 HEPATITIS C SCREENING 1979 HIV ONE-TIME SCREENING (18-65 YEARS) 1979 PAP SMEAR 1982 SCREENING FOR DIABETES 1996 MAMMOGRAM 2001 COLOGUARD 2006 COLONOSCOPY 2006 COLORECTAL CANCER SCREENING 2006 FIT TEST 2006 FOBT 2006 SIGMOIDOSCOPY 2006 VIRTUAL COLONOSCOPY 2006 PNEUMOCOCCAL VACCINES (50+ years) (2 of 2 - PCV) 10/11/2021 10/11/2020 INFLUENZA VACCINE (#1) 2025 , 07/18/2023, 09/27/2022, Additional history exists COVID-19 VACCINE (2024- season) 2025 09/27/2022, 08/27/2022, 08/27/2021, Additional history exists Adult Td,Tdap Booster 04/13/2035 04/13/2025 RSV VACCINE (1 - 1-dose 75+ series) 2036 ZOSTER VACCINES Completed 06/08/2021, 04/06/2021 SMOKING STATUS SCREENING (Once After 26 Yrs) Completed 06/03/2025 HEPATITIS A VACCINES Aged Out No long er eligible based on patient's age to complete this topic HIB VACCINES Aged Out No longer eligi ble based on patient's age to complete this topic MENINGOCOCCAL VACCINES (ACWY) Aged Out No longer eligible based on patient's age to complete this topic MENINGOCOCCAL VACCINES (B) Aged Out N o longer eligible based on patient's age to complete this topic Medical Devices Implanted Type Area Unbundler Device Identifier Shelf Expiration Date Model / Serial / Lot Screw From Modular Hand Tray, Synthes Implanted:Qty: 1 on 04/21/2025 by Dipak Gilbert MD at [facility] Left: Foot [id number] / / Procedures Procedure Name Priority Date/Time Associated Diagnosis Comments XR FINGER 2 OR MORE VIEWS (LEFT) Routine 10/14/2025 11:43 AM EST Injury of left middle finger from Last 3 Months Results * XR FINGER 2 OR MORE VIEWS (LEFT) (10/14/2025 11:43 AM EST) Narrative SYSTEMGENERATED, DOCUMENTATION - 10/14/2025 11:44 AM EST This image report has been auto-finalized and has not been read by a Radiologist. Interpretation has been included in the provider encounter note for this date of service. Leonard Dixon PA-C IMG XR UPPER EXTREMITY Final Result from Last 3 Months Insurance BLUE CROSS OUT OF STATE PPO [employer] BLUE CROSS OUT OF [facility] PPO [employer] BLUE CROSS OUT OF STATE PPO Member Subscriber Plan / Payer (Ef fective 2020-Present) Name:Dominique Scott Relation to Subscriber:Self Name:Dominique Scott Payer ID:[id number] ([facility]) Type:PPO Address: [phone] HEALTH PLAN [place] CROSS OUT OF STATE PPO Member Subscriber Plan / Payer (Ef fective 2020-Present) Name:Dominique Scott Relation to Subscriber:Self Name:Dominique Scott Payer ID:[id number] ([facility]) Type:PPO Address: [phone] HEALTH PLAN BLUE CROSS OUT [place] [address] [place] [address] HEALTH PLAN BLUE CROSS OUT OF STATE PPO [facility] Care Teams Dude Ranch Manager Relationship Specialty Start Date End Date Colin Alfaro MD [address] [place] [address] [place] [address] PCP - General 03/18/15 Additional Source Comments The information contained in this document represents components of the legal health record. It is not the complete legal health record.[facility]
== END 2025-10-28 10:31 | disposition home or self-care (01) ==
LOC: HO.LNP 10:30
PROVIDERS: Visit Provider Internal Medicine
DX: E78.00 Pure hypercholesterolemia, unspecified (principal)
CPT/HCPCS: 80061; 80076